=== PATIENT | female | born 1965 | race Caucasian/White ===

== ENCOUNTER 2017-07-10 01:08 | Day surgery (SDC) | payer OTHER ==
[~2017-07-10 01:08] MED LIST: ALBU90I INH; ALBU90OI; ALBU90OI61 INH; ALPR.5 PO; ALPR1 PO; BUME1; BUME2 PO; CEFD300 PO; CEFP200 PO; CEPH500 PO; CIPR500 PO; CLIN150; Colace100 MG PO; Coumadin2.5 MG PO; Coumadin5 MG PO; DIAZ5 PO; DOCU100 PO; DOXY100 PO; ELIQUIS5 MG PO; ENOX60I SC; FLUC100 PO; FLUSAL1005; GABA400; HYDCHLSU PO; HYDMOR2 PO; HYDMOR4 PO; HYDMOR8 PO; Invanz1 GM IV; LANS30EC PO; LEVFLO250 PO; LEVFLO500 PO; LEVO750 PO; LEVOFLOXAC500 MG/100 IV; LIDO2L MM; LORA1 PO; LORA2 PO; Lovenox80 MG/0.8 SC; METO10; METO10 PO; METO5A PO; Micro-K10 MEQ PO; NUTRISOURCE FI1 EACH PO; ONDA4ODT MM; OXECTA5 MG PO; OXYC15ER PO; OXYC20L PO; OXYC30 PO; OXYC5; OXYC5 PO; PANT20 PO; PANT40 PO; PHENA200 PO; POTCIT10 PO; PREG75 PO; PROACE100 PO; PROM25 PO; Prilosec Otc20 MG PO; RXHYDMOR2 PO; RXPHEN200 PO; RXPROACE PO; RXPROM25 PO; RXTRAM50 PO; SACC250C PO; SODBIC650 PO; SPACER INH; SULTRIDS PO; SULTRISS; TRAM50 PO; VITAMIN D31000 UNIT PO; WALKER USE; WARF2.5 PO; WARF5 PO; WARF7.5 PO; [UNRECOGNIZED DRUG - OTHER]
[2017-09-11] MEDS ORDERED: OXYCODONE HCL E15 MG PO (20:44)
[2017-09-17] MEDS ORDERED: DOCU100 PO (15:09)
[2017-09-17] MEDS ORDERED: ELIQUIS2.5 MG PO (15:10)
[2017-09-17] MEDS ORDERED: CEFP200 PO (15:11)
[2018-02-13] MEDS ORDERED: PROM25 PO (15:37)
[2018-02-13] MEDS ORDERED: LINZESS72 MCG PO (15:39)
[2018-03-04] MEDS ORDERED: LEVFLO500 PO (23:56)
[2018-03-24] MEDS ORDERED: CEFD300 PO (10:37)
[2018-03-24] MEDS ORDERED: ONDA4ODT MM (10:38)
[2018-03-24] MEDS ORDERED: Questran4 GM PO (12:37)
== END 2017-07-10 16:10 | disposition home or self-care (01) ==
LOC: ATC 01:08
DX: Z45.2 Encounter for adjustment and management of vascular access device (principal); N18.3 Chronic kidney disease, stage 3 (moderate); D63.1 Anemia in chronic kidney disease; R73.09 Other abnormal glucose; R76.9 Abnormal immunological finding in serum, unspecified; R94.5 Abnormal results of liver function studies; R94.6 Abnormal results of thyroid function studies; R53.81 Other malaise; L65.9 Nonscarring hair loss, unspecified
CPT/HCPCS: 96374; J1642; J2550

== ENCOUNTER 2017-07-24 09:33 | Inpatient (IN) | payer OTHER ==
[~2017-07-24] VITALS: Ht 167.6 cm; Wt 72.7 kg
[2017-07-24 11:05] LABS: Source, Urine Urostomy Bag
[2017-07-24 11:16] LABS: Blood, Urine 5+ (Neg); Glucose Qualitative, Urine Neg (Neg); Ketones, Urine 1+ (Neg); Leukocyte Esterase, Urine 3+ (Neg); Nitrite, Urine Neg (Neg); Protein, Urine 3+ (Neg); Specific Gravity, Urine 1.025 (1.003-1.022); Urobilinogen, Urine 1+ (Normal)
[2017-07-24 11:18] LABS: BASOPHILS ABSOLUTE AUTO 0.03 K/mm3 (0.00-0.23); BASOPHILS PERCENT AUTO 0 % (0-2); EOSINOPHILS ABSOLUTE AUTO 0.06 K/mm3 (0.00-0.68); EOSINOPHILS PERCENT AUTO 1 % (0-6); Hematocrit 49.7 % (33.0-51.0); Hemoglobin 17.1 g/dL (11.5-16.0); IMMATURE GRAN ABSOLUTE AUTO 0.05 K/mm3 (0.00-0.10); IMMATURE GRAN PERCENT AUTO 1 % (0-1); LYMPHOCYTES ABSOLUTE AUTO 1.85 K/mm3 (0.84-5.20); LYMPHOCYTES PERCENT AUTO 23 % (21-46); MONOCYTES ABSOLUTE AUTO 0.76 K/mm3 (0.16-1.47); MONOCYTES PERCENT AUTO 10 % (4-13); Mean Corpuscular HGB 28.6 pg (26.0-34.0); Mean Corpuscular HGB Conc 34.4 g/dL (31.5-36.5); Mean Corpuscular Volume 83 fL (80-100); NEUTROPHILS ABSOLUTE AUTO 5.22 K/mm3 (1.96-9.15); NEUTROPHILS PERCENT AUTO 66 % (41-73); RDW Coefficient Variation 14.8 % (11.7-14.2); RDW Standard Deviation 44.7 fL (35.1-46.3); Red Blood Cell Count 5.98 M/mm3 (3.80-5.20); White Blood Cell Count 7.97 K/mm3 (4.00-11.30)
[2017-07-24 11:22] LABS: Mean Platelet Volume 9.5 fL (9.1-12.4); Platelet Count 325 K/mm3 (150-400)
[2017-07-24 11:43] LABS: Albumin, Blood 3.7 g/dL (3.4-5.0); Albumin/Globulin Ratio 0.7 (0.8-1.8); Bilirubin, Total 0.7 mg/dL (0.1-1.0); Bun/Creatinine Ratio 18.1 (12.0-20.0); Calcium, Blood 9.2 mg/dL (8.5-10.1); Creatinine, Blood 2.87 mg/dL (0.40-1.00); Potassium, Blood 4.1 mmol/L (3.5-5.5); Total Protein, Blood 8.7 g/dL (6.4-8.2)
[2017-07-24 11:47] LABS: Bilirubin, Urine 2+ (Neg)
[2017-07-24 11:48] LABS: Appearance, Urine Turbid (Clear); Color, Urine Yellow (P-Yellow)
[2017-07-24 11:49] LABS: Bacteria Many /hpf; White Blood Cells, Urine TNTC /hpf (0-5)
[2017-07-24 11:51] LABS: Squamous Epithelial Cells Many /hpf (Few); Uric Acid Crystals Mod /hpf
[2017-07-24 11:53] LABS: Granular Casts 0-2 /lpf (0)
[2017-07-24] MEDS ORDERED: [UNRECOGNIZED DRUG - CODE] PO (12:44)
[2017-07-25 05:10] LABS: BASOPHILS ABSOLUTE AUTO 0.02 K/mm3 (0.00-0.23); BASOPHILS PERCENT AUTO 0 % (0-2); EOSINOPHILS PERCENT AUTO 3 % (0-6); Hematocrit 42.7 % (33.0-51.0); Hemoglobin 14.2 g/dL (11.5-16.0); IMMATURE GRAN ABSOLUTE AUTO 0.02 K/mm3 (0.00-0.10); IMMATURE GRAN PERCENT AUTO 0 % (0-1); LYMPHOCYTES ABSOLUTE AUTO 2.12 K/mm3 (0.84-5.20); LYMPHOCYTES PERCENT AUTO 36 % (21-46); MONOCYTES ABSOLUTE AUTO 0.72 K/mm3 (0.16-1.47); MONOCYTES PERCENT AUTO 12 % (4-13); Mean Corpuscular HGB 28.3 pg (26.0-34.0); Mean Corpuscular HGB Conc 33.3 g/dL (31.5-36.5); Mean Corpuscular Volume 85 fL (80-100); Mean Platelet Volume 9.3 fL (9.1-12.4); NEUTROPHILS ABSOLUTE AUTO 2.87 K/mm3 (1.96-9.15); NEUTROPHILS PERCENT AUTO 48 % (41-73); Platelet Count 241 K/mm3 (150-400); RDW Coefficient Variation 14.5 % (11.7-14.2); RDW Standard Deviation 44.5 fL (35.1-46.3); Red Blood Cell Count 5.02 M/mm3 (3.80-5.20); White Blood Cell Count 5.95 K/mm3 (4.00-11.30)
[2017-07-25 05:43] LABS: Alanine Aminotransfer (ALT/SGP 19 U/L (12-78); Albumin, Blood 3.1 g/dL (3.4-5.0); Albumin/Globulin Ratio 0.7 (0.8-1.8); Alk Phos 149 U/L (50-136); Anion Gap 11 mmol/L (6-16); Aspartate Aminotrans (AST/SGOT 11 U/L (12-37); Bilirubin, Total 0.6 mg/dL (0.1-1.0); Blood Urea Nitrogen 47 mg/dL (8-24); Bun/Creatinine Ratio 23.2 (12.0-20.0); CO2, Blood 22 mmol/L (21-32); Calcium, Blood 8.3 mg/dL (8.5-10.1); Chloride, Blood 100 mmol/L (98-108); Creatinine, Blood 2.03 mg/dL (0.40-1.00); Globulin, Blood 4.3 g/dL (2.2-4.0); Glomerular Filtration Rate 28 (60-); Glucose, Blood 112 mg/dL (70-99); Magnesium, Blood 2.1 mg/dL (1.6-2.4); Potassium, Blood 3.8 mmol/L (3.5-5.5); Sodium, Blood 133 mmol/L (136-145); Total Protein, Blood 7.4 g/dL (6.4-8.2)
[2017-07-26 06:06] LABS: Hematocrit 40.7 % (33.0-51.0); Hemoglobin 13.2 g/dL (11.5-16.0)
[2017-07-26 06:30] LABS: Albumin, Blood 3.2 g/dL (3.4-5.0); Anion Gap 9 mmol/L (6-16); Blood Urea Nitrogen 40 mg/dL (8-24); Bun/Creatinine Ratio 19.6 (12.0-20.0); CO2, Blood 21 mmol/L (21-32); Calcium, Blood 8.5 mg/dL (8.5-10.1); Chloride, Blood 105 mmol/L (98-108); Creatinine, Blood 2.04 mg/dL (0.40-1.00); Glomerular Filtration Rate 27 (60-); Glucose, Blood 118 mg/dL (70-99); Magnesium, Blood 1.8 mg/dL (1.6-2.4); Phosphorus, Blood 3.8 mg/dL (2.5-4.9); Sodium, Blood 135 mmol/L (136-145)
[2017-07-27 05:27] LABS: Hematocrit 37.8 % (33.0-51.0); Hemoglobin 12.2 g/dL (11.5-16.0)
[2017-07-27 05:45] LABS: Albumin, Blood 2.9 g/dL (3.4-5.0); Anion Gap 8 mmol/L (6-16); Blood Urea Nitrogen 31 mg/dL (8-24); CO2, Blood 23 mmol/L (21-32); Calcium, Blood 8.2 mg/dL (8.5-10.1); Chloride, Blood 108 mmol/L (98-108); Creatinine, Blood 1.55 mg/dL (0.40-1.00); Glomerular Filtration Rate 38 (60-); Glucose, Blood 114 mg/dL (70-99); Magnesium, Blood 1.9 mg/dL (1.6-2.4); Phosphorus, Blood 3.4 mg/dL (2.5-4.9); Potassium, Blood 4.1 mmol/L (3.5-5.5); Sodium, Blood 139 mmol/L (136-145)
[2017-07-28 05:12] LABS: Hemoglobin 11.8 g/dL (11.5-16.0)
[2017-07-28 05:32] LABS: Albumin, Blood 3.1 g/dL (3.4-5.0); Anion Gap 10 mmol/L (6-16); Blood Urea Nitrogen 31 mg/dL (8-24); Bun/Creatinine Ratio 17.2 (12.0-20.0); CO2, Blood 22 mmol/L (21-32); Calcium, Blood 8.1 mg/dL (8.5-10.1); Chloride, Blood 109 mmol/L (98-108); Glomerular Filtration Rate 32 (60-); Glucose, Blood 122 mg/dL (70-99); Magnesium, Blood 1.7 mg/dL (1.6-2.4); Phosphorus, Blood 3.5 mg/dL (2.5-4.9); Sodium, Blood 141 mmol/L (136-145)
[2017-07-28] MEDS ORDERED: XARELTO20 MG PO (12:34)
[2017-07-28] MEDS ORDERED: CEPH500 PO (12:35)
[2017-09-11] MEDS ORDERED: OXYCODONE HCL E15 MG PO (20:44)
[2017-09-17] MEDS ORDERED: DOCU100 PO (15:09)
[2017-09-17] MEDS ORDERED: ELIQUIS2.5 MG PO (15:10)
[2017-09-17] MEDS ORDERED: CEFP200 PO (15:11)
[2018-02-13] MEDS ORDERED: PROM25 PO (15:37)
[2018-02-13] MEDS ORDERED: LINZESS72 MCG PO (15:39)
[2018-03-04] MEDS ORDERED: LEVFLO500 PO (23:56)
[2018-03-24] MEDS ORDERED: CEFD300 PO (10:37)
[2018-03-24] MEDS ORDERED: ONDA4ODT MM (10:38)
[2018-03-24] MEDS ORDERED: Questran4 GM PO (12:37)
== END 2017-07-28 16:00 | disposition home or self-care (01) | DRG 389 ==
LOC: DELPENDDIS → ER 09:33 → MEDS 12:34 → ENPENDDIS 07-27 09:45 → MEDS 07-28 16:00
PROVIDERS: Internal Medicine; Internal Medicine Nephrology
DX: K56.609 Unspecified intestinal obstruction, unspecified as to partial versus complete obstruction (principal); N39.0 Urinary tract infection, site not specified; N17.9 Acute kidney failure, unspecified; E87.2 Acidosis; E87.1 Hypo-osmolality and hyponatremia; G82.20 Paraplegia, unspecified; G89.29 Other chronic pain; N18.9 Chronic kidney disease, unspecified; E86.9 Volume depletion, unspecified; E21.3 Hyperparathyroidism, unspecified; J44.9 Chronic obstructive pulmonary disease, unspecified; B96.20 Unspecified Escherichia coli [E. coli] as the cause of diseases classified elsewhere; E88.09 Other disorders of plasma-protein metabolism, not elsewhere classified; R80.9 Proteinuria, unspecified; R31.29 Other microscopic hematuria; F17.210 Nicotine dependence, cigarettes, uncomplicated; Z88.6 Allergy status to analgesic agent; Z88.5 Allergy status to narcotic agent; Z88.8 Allergy status to other drugs, medicaments and biological substances; Z93.2 Ileostomy status; Z93.6 Other artificial openings of urinary tract status; Z90.5 Acquired absence of kidney; Z85.41 Personal history of malignant neoplasm of cervix uteri; Z86.718 Personal history of other venous thrombosis and embolism; Z79.01 Long term (current) use of anticoagulants; Z79.899 Other long term (current) drug therapy; Z86.14 Personal history of Methicillin resistant Staphylococcus aureus infection
CPT/HCPCS: 36415; 74022; 74176; 80053; 80069; 81001; 83605; 83690; 83735; 84100; 84145; 85014; 85018; 85025; 87040; 87077; 87086; 87186; 87493; 96361; 96365; 96375; 96376; 99285; C9113; J0696; J1170; J1642; J1940; J1956; J2405; J2550; J2997; J7030; J7042; J7070

== ENCOUNTER → 2017-08-20 | Outpatient (CLI) | payer OTHER ==
[~2017-08-20] MED LIST changes: +ALBU2.5V5 NEB; +Amitiza24 MCG; +Amitiza24 MCG PO; +ELIQUIS2.5 MG PO; +LINZESS72 MCG PO; +Miralax17 GM PO; +OXYCODONE HCL E15 MG PO; +Questran4 GM PO; +XARELTO20 MG PO; +[UNRECOGNIZED DRUG - CODE] PO
[2017-08-20 18:41] LABS: Albumin, Blood 3.9 g/dL (3.4-5.0); Anion Gap 11 mmol/L (6-16); Blood Urea Nitrogen 22 mg/dL (8-24); Bun/Creatinine Ratio 13.5 (12.0-20.0); CO2, Blood 18 mmol/L (21-32); Calcium, Blood 8.9 mg/dL (8.5-10.1); Chloride, Blood 106 mmol/L (98-108); Creatinine, Blood 1.63 mg/dL (0.40-1.00); Glomerular Filtration Rate 36 (60-); Glucose, Blood 106 mg/dL (70-99); Sodium, Blood 135 mmol/L (136-145)
== END | disposition home or self-care (01) ==
LOC: LAB 16:59
PROVIDERS: Internal Medicine Nephrology
DX: N18.2 Chronic kidney disease, stage 2 (mild) (principal); D63.1 Anemia in chronic kidney disease
CPT/HCPCS: 80069; 85018

== ENCOUNTER 2017-11-20 05:46 | Inpatient (IN) | payer OTHER ==
[~2017-11-20] VITALS: Ht 157.5 cm; Wt 70.8 kg
[~2017-11-20 05:46] MED LIST changes: -ALBU2.5V5 NEB; -Amitiza24 MCG; -Amitiza24 MCG PO; -LINZESS72 MCG PO; -Miralax17 GM PO; -Questran4 GM PO
[2017-11-20 07:30] LABS: BASOPHILS ABSOLUTE AUTO 0.03 K/mm3 (0.00-0.23); BASOPHILS PERCENT AUTO 0 % (0-2); EOSINOPHILS ABSOLUTE AUTO 0.01 K/mm3 (0.00-0.68); EOSINOPHILS PERCENT AUTO 0 % (0-6); Hemoglobin 16.5 g/dL (11.5-16.0); IMMATURE GRAN ABSOLUTE AUTO 0.03 K/mm3 (0.00-0.10); IMMATURE GRAN PERCENT AUTO 0 % (0-1); LYMPHOCYTES ABSOLUTE AUTO 1.15 K/mm3 (0.84-5.20); LYMPHOCYTES PERCENT AUTO 12 % (21-46); MONOCYTES ABSOLUTE AUTO 0.38 K/mm3 (0.16-1.47); MONOCYTES PERCENT AUTO 4 % (4-13); Mean Corpuscular HGB 27.7 pg (26.0-34.0); Mean Corpuscular HGB Conc 32.4 g/dL (31.5-36.5); Mean Corpuscular Volume 86 fL (80-100); Mean Platelet Volume 9.3 fL (9.1-12.4); NEUTROPHILS ABSOLUTE AUTO 7.83 K/mm3 (1.96-9.15); NEUTROPHILS PERCENT AUTO 83 % (41-73); Platelet Count 300 K/mm3 (150-400); RDW Coefficient Variation 15.1 % (11.7-14.2); RDW Standard Deviation 47.6 fL (35.1-46.3); Red Blood Cell Count 5.95 M/mm3 (3.80-5.20); White Blood Cell Count 9.43 K/mm3 (4.00-11.30)
[2017-11-20 09:53] LABS: Source, Urine Clean Catch
[2017-11-20 10:08] LABS: Blood, Urine 2+ (Neg); Glucose Qualitative, Urine Neg (Neg); Ketones, Urine Neg (Neg); Leukocyte Esterase, Urine 3+ (Neg); Nitrite, Urine Pos (Neg); Protein, Urine 3+ (Neg); Specific Gravity, Urine 1.025 (1.003-1.022); Urobilinogen, Urine 1+ (Normal)
[2017-11-20 10:29] LABS: Bilirubin, Urine 1+ (Neg)
[2017-11-20 10:31] LABS: Appearance, Urine Cloudy (Clear); Bacteria Many /hpf; Color, Urine Yellow (P-Yellow); Mucus Light (0-Heavy); Squamous Epithelial Cells Mod /hpf (Few); White Blood Cells, Urine TNTC /hpf (0-5)
[2017-11-20 10:40] LABS: Albumin, Blood 3.6 g/dL (3.4-5.0); Albumin/Globulin Ratio 0.8 (0.8-1.8); Bilirubin, Total 0.6 mg/dL (0.1-1.0); Bun/Creatinine Ratio 11.2 (12.0-20.0); Calcium, Blood 9.4 mg/dL (8.5-10.1); Creatinine, Blood 1.96 mg/dL (0.40-1.00); Globulin, Blood 4.5 g/dL (2.2-4.0); Potassium, Blood 3.9 mmol/L (3.5-5.5); Total Protein, Blood 8.1 g/dL (6.4-8.2)
[2017-11-20] MEDS ORDERED: ALBU2.5V5 NEB (12:16)
[2017-11-20 17:05] LABS: Albumin, Blood 3.1 g/dL (3.4-5.0); Albumin/Globulin Ratio 0.8 (0.8-1.8); Bilirubin, Direct 0.5 mg/dL (0.0-0.3); Bilirubin, Indirect 0.6 mg/dL (0.1-0.7); Bilirubin, Total 1.1 mg/dL (0.1-1.0); Globulin, Blood 4.1 g/dL (2.2-4.0); Total Protein, Blood 7.2 g/dL (6.4-8.2)
[2017-11-21 02:39] LABS: BASOPHILS ABSOLUTE AUTO 0.02 K/mm3 (0.00-0.23); BASOPHILS PERCENT AUTO 0 % (0-2); Hematocrit 44.4 % (33.0-51.0); Hemoglobin 14.4 g/dL (11.5-16.0); LYMPHOCYTES ABSOLUTE AUTO 0.99 K/mm3 (0.84-5.20); LYMPHOCYTES PERCENT AUTO 17 % (21-46); MONOCYTES ABSOLUTE AUTO 0.68 K/mm3 (0.16-1.47); MONOCYTES PERCENT AUTO 12 % (4-13); Mean Corpuscular HGB Conc 32.4 g/dL (31.5-36.5); Mean Corpuscular Volume 86 fL (80-100); Mean Platelet Volume 9.1 fL (9.1-12.4); Platelet Count 204 K/mm3 (150-400); RDW Coefficient Variation 15.2 % (11.7-14.2); RDW Standard Deviation 48.5 fL (35.1-46.3); Red Blood Cell Count 5.15 M/mm3 (3.80-5.20)
[2017-11-21 02:43] LABS: EOSINOPHILS ABSOLUTE AUTO 0.01 K/mm3 (0.00-0.68); EOSINOPHILS PERCENT AUTO 0 % (0-6); IMMATURE GRAN ABSOLUTE AUTO 0.03 K/mm3 (0.00-0.10); IMMATURE GRAN PERCENT AUTO 1 % (0-1); NEUTROPHILS ABSOLUTE AUTO 3.97 K/mm3 (1.96-9.15); NEUTROPHILS PERCENT AUTO 70 % (41-73)
[2017-11-21 02:55] LABS: Albumin, Blood 2.7 g/dL (3.4-5.0); Anion Gap 13 mmol/L (6-16); Blood Urea Nitrogen 34 mg/dL (8-24); Bun/Creatinine Ratio 13.5 (12.0-20.0); CO2, Blood 18 mmol/L (21-32); Chloride, Blood 111 mmol/L (98-108); Creatinine, Blood 2.51 mg/dL (0.40-1.00); Glomerular Filtration Rate 22 (60-); Glucose, Blood 137 mg/dL (70-99); Magnesium, Blood 1.3 mg/dL (1.6-2.4); Phosphorus, Blood 3.6 mg/dL (2.5-4.9); Potassium, Blood 3.6 mmol/L (3.5-5.5); Sodium, Blood 142 mmol/L (136-145)
[2017-11-22 05:24] LABS: Hematocrit 36.2 % (33.0-51.0); Hemoglobin 12.5 g/dL (11.5-16.0)
[2017-11-22 05:45] LABS: Albumin, Blood 2.4 g/dL (3.4-5.0); Anion Gap 13 mmol/L (6-16); Blood Urea Nitrogen 36 mg/dL (8-24); Bun/Creatinine Ratio 13.5 (12.0-20.0); CO2, Blood 28 mmol/L (21-32); Chloride, Blood 98 mmol/L (98-108); Creatinine, Blood 2.67 mg/dL (0.40-1.00); Glomerular Filtration Rate 20 (60-); Glucose, Blood 95 mg/dL (70-99); Magnesium, Blood 2.1 mg/dL (1.6-2.4); Phosphorus, Blood 3.3 mg/dL (2.5-4.9); Potassium, Blood 2.8 mmol/L (3.5-5.5); Sodium, Blood 139 mmol/L (136-145)
[2017-11-22 16:16] LABS: Magnesium, Blood 2.1 mg/dL (1.6-2.4); Potassium, Blood 3.3 mmol/L (3.5-5.5)
[2017-11-23 04:20] LABS: Hematocrit 32.2 % (33.0-51.0); Hemoglobin 10.7 g/dL (11.5-16.0)
[2017-11-23 04:36] LABS: Albumin, Blood 2.5 g/dL (3.4-5.0); Anion Gap 8 mmol/L (6-16); Blood Urea Nitrogen 28 mg/dL (8-24); CO2, Blood 28 mmol/L (21-32); Calcium, Blood 7.8 mg/dL (8.5-10.1); Chloride, Blood 104 mmol/L (98-108); Creatinine, Blood 2.33 mg/dL (0.40-1.00); Glomerular Filtration Rate 23 (60-); Glucose, Blood 90 mg/dL (70-99); Magnesium, Blood 2.1 mg/dL (1.6-2.4); Phosphorus, Blood 2.4 mg/dL (2.5-4.9); Potassium, Blood 3.1 mmol/L (3.5-5.5); Sodium, Blood 140 mmol/L (136-145)
[2017-11-23 16:40] LABS: Phosphorus, Blood 3.5 mg/dL (2.5-4.9); Potassium, Blood 3.9 mmol/L (3.5-5.5)
[2017-11-24 04:28] LABS: Hematocrit 30.2 % (33.0-51.0); Hemoglobin 9.7 g/dL (11.5-16.0)
[2017-11-24 04:40] LABS: Albumin, Blood 2.3 g/dL (3.4-5.0); Anion Gap 7 mmol/L (6-16); Blood Urea Nitrogen 23 mg/dL (8-24); Bun/Creatinine Ratio 12.1 (12.0-20.0); CO2, Blood 27 mmol/L (21-32); Calcium, Blood 7.8 mg/dL (8.5-10.1); Chloride, Blood 106 mmol/L (98-108); Glomerular Filtration Rate 30 (60-); Glucose, Blood 102 mg/dL (70-99); Magnesium, Blood 1.9 mg/dL (1.6-2.4); Potassium, Blood 3.6 mmol/L (3.5-5.5); Sodium, Blood 140 mmol/L (136-145)
[2017-11-25 06:13] LABS: Hematocrit 32.5 % (33.0-51.0); Hemoglobin 10.3 g/dL (11.5-16.0)
[2017-11-25 06:31] LABS: Albumin, Blood 2.4 g/dL (3.4-5.0); Anion Gap 7 mmol/L (6-16); Blood Urea Nitrogen 20 mg/dL (8-24); Bun/Creatinine Ratio 12.7 (12.0-20.0); CO2, Blood 26 mmol/L (21-32); Chloride, Blood 108 mmol/L (98-108); Creatinine, Blood 1.57 mg/dL (0.40-1.00); Glomerular Filtration Rate 37 (60-); Glucose, Blood 92 mg/dL (70-99); Magnesium, Blood 1.7 mg/dL (1.6-2.4); Phosphorus, Blood 2.2 mg/dL (2.5-4.9); Potassium, Blood 4.1 mmol/L (3.5-5.5); Sodium, Blood 141 mmol/L (136-145)
[2017-11-26 06:57] LABS: Hematocrit 31.3 % (33.0-51.0); Hemoglobin 10.1 g/dL (11.5-16.0)
[2017-11-26 07:12] LABS: Albumin, Blood 2.4 g/dL (3.4-5.0); Anion Gap 9 mmol/L (6-16); Blood Urea Nitrogen 17 mg/dL (8-24); Bun/Creatinine Ratio 12.3 (12.0-20.0); CO2, Blood 24 mmol/L (21-32); Calcium, Blood 8.2 mg/dL (8.5-10.1); Chloride, Blood 108 mmol/L (98-108); Creatinine, Blood 1.38 mg/dL (0.40-1.00); Glomerular Filtration Rate 43 (60-); Glucose, Blood 108 mg/dL (70-99); Magnesium, Blood 1.3 mg/dL (1.6-2.4); Phosphorus, Blood 2.8 mg/dL (2.5-4.9); Potassium, Blood 4.3 mmol/L (3.5-5.5); Sodium, Blood 141 mmol/L (136-145)
[2017-11-26] MEDS ORDERED: Amitiza24 MCG PO (15:04)
[2017-11-26] MEDS ORDERED: CEFP200 PO (15:05)
== END 2017-11-26 16:05 | disposition home or self-care (01) | DRG 683 ==
LOC: ER 05:46 → PCU 11:32 → MEDS 11:32 → PCU 11-21 02:51 → MEDS 11-24 18:20 → ENPENDDIS 11-26 12:00 → MEDS 11-26 16:05
PROVIDERS: Emergency Medicine; Internal Medicine; Internal Medicine Nephrology
DX: N17.9 Acute kidney failure, unspecified (principal); K56.7 Ileus, unspecified; E87.2 Acidosis; N39.0 Urinary tract infection, site not specified; G82.20 Paraplegia, unspecified; E21.3 Hyperparathyroidism, unspecified; E86.9 Volume depletion, unspecified; B96.20 Unspecified Escherichia coli [E. coli] as the cause of diseases classified elsewhere; Z16.12 Extended spectrum beta lactamase (ESBL) resistance; Z85.41 Personal history of malignant neoplasm of cervix uteri; Z86.718 Personal history of other venous thrombosis and embolism; Z79.01 Long term (current) use of anticoagulants; J44.9 Chronic obstructive pulmonary disease, unspecified; F41.8 Other specified anxiety disorders; F17.210 Nicotine dependence, cigarettes, uncomplicated; G89.4 Chronic pain syndrome; Z93.6 Other artificial openings of urinary tract status; E83.42 Hypomagnesemia; K59.03 Drug induced constipation; T40.2X5A Adverse effect of other opioids, initial encounter
CPT/HCPCS: 36415; 74022; 74176; 80048; 80053; 80069; 80076; 81001; 82150; 83605; 83690; 83735; 84100; 84132; 85014; 85018; 85025; 87040; 87077; 87086; 87186; 93005; 93010; 96361; 96374; 96375; 96376; 99285; C9113; J0696; J0780; J0881; J1642; J1940; J2405; J2543; J2550; J2997; J3010; J3475; J3480; J7030; J7050; J7060

== ENCOUNTER 2018-02-11 11:33 | Day surgery (SDC) | payer OTHER ==
[~2018-02-11 11:33] MED LIST changes: +ALBU2.5V5 NEB; +Amitiza24 MCG PO
[2018-02-11 12:49] LABS: Albumin, Blood 3.5 g/dL (3.4-5.0); Anion Gap 10 mmol/L (6-16); Blood Urea Nitrogen 33 mg/dL (8-24); Bun/Creatinine Ratio 14.9 (12.0-20.0); CO2, Blood 18 mmol/L (21-32); Calcium, Blood 8.6 mg/dL (8.5-10.1); Chloride, Blood 113 mmol/L (98-108); Creatinine, Blood 2.21 mg/dL (0.40-1.00); Glomerular Filtration Rate 25 (60-); Glucose, Blood 77 mg/dL (70-99); Phosphorus, Blood 3.4 mg/dL (2.5-4.9); Potassium, Blood 4.1 mmol/L (3.5-5.5); Sodium, Blood 141 mmol/L (136-145)
[2018-02-13] MEDS ORDERED: OXYC15ER (15:35)
== END 2018-02-11 12:18 | disposition home or self-care (01) ==
LOC: ATC 11:33
PROVIDERS: Internal Medicine Nephrology
DX: N13.9 Obstructive and reflux uropathy, unspecified (principal); N18.3 Chronic kidney disease, stage 3 (moderate); D63.1 Anemia in chronic kidney disease; R11.2 Nausea with vomiting, unspecified
CPT/HCPCS: 80069; 85018; 96374; J1642; J2550

== ENCOUNTER 2018-02-13 14:47 | Inpatient (IN) | payer OTHER ==
[~2018-02-13] VITALS: Ht 167.6 cm; Wt 61.0 kg
[2018-02-13 15:28] LABS: Source, Urine Clean Catch
[2018-02-13 15:30] LABS: BASOPHILS ABSOLUTE AUTO 0.08 K/mm3 (0.00-0.23); BASOPHILS PERCENT AUTO 1 % (0-2); EOSINOPHILS ABSOLUTE AUTO 0.02 K/mm3 (0.00-0.68); EOSINOPHILS PERCENT AUTO 0 % (0-6); Hemoglobin 15.7 g/dL (11.5-16.0); IMMATURE GRAN ABSOLUTE AUTO 0.05 K/mm3 (0.00-0.10); IMMATURE GRAN PERCENT AUTO 0 % (0-1); LYMPHOCYTES ABSOLUTE AUTO 1.54 K/mm3 (0.84-5.20); LYMPHOCYTES PERCENT AUTO 9 % (21-46); MONOCYTES ABSOLUTE AUTO 0.68 K/mm3 (0.16-1.47); MONOCYTES PERCENT AUTO 4 % (4-13); Mean Corpuscular HGB 27.6 pg (26.0-34.0); Mean Corpuscular HGB Conc 32.7 g/dL (31.5-36.5); Mean Corpuscular Volume 85 fL (80-100); Mean Platelet Volume 9.1 fL (9.1-12.4); NEUTROPHILS ABSOLUTE AUTO 14.03 K/mm3 (1.96-9.15); NEUTROPHILS PERCENT AUTO 86 % (41-73); Platelet Count 343 K/mm3 (150-400); RDW Standard Deviation 49.6 fL (35.1-46.3); Red Blood Cell Count 5.68 M/mm3 (3.80-5.20)
[2018-02-13 15:30] LABS: Appearance, Urine Cloudy (Clear); Blood, Urine 5+ (Neg); Color, Urine Yellow (P-Yellow); Glucose Qualitative, Urine Neg (Neg); Ketones, Urine Neg (Neg); Leukocyte Esterase, Urine 3+ (Neg); Nitrite, Urine Neg (Neg); Protein, Urine 3+ (Neg); Urobilinogen, Urine 1+ (Normal)
[2018-02-13 15:35] LABS: Bilirubin, Urine 1+ (Neg)
[2018-02-13] MEDS ORDERED: OXYC15ER PO (15:35)
[2018-02-13 15:36] LABS: White Blood Cells, Urine TNTC /hpf (0-5)
[2018-02-13] MEDS ORDERED: PROM25 (15:37)
[2018-02-13] MEDS ORDERED: Amitiza24 MCG (15:37)
[2018-02-13 15:38] LABS: Bacteria Many /hpf; Squamous Epithelial Cells Few /hpf (Few)
[2018-02-13] MEDS ORDERED: LINZESS72 MCG (15:39)
[2018-02-13 15:46] LABS: Albumin, Blood 4.2 g/dL (3.4-5.0); Albumin/Globulin Ratio 0.9 (0.8-1.8); Bilirubin, Total 0.4 mg/dL (0.1-1.0); Bun/Creatinine Ratio 11.5 (12.0-20.0); Creatinine, Blood 3.31 mg/dL (0.40-1.00); Globulin, Blood 4.8 g/dL (2.2-4.0); Potassium, Blood 3.3 mmol/L (3.5-5.5)
[2018-02-13 21:59] LABS: Bun/Creatinine Ratio 12.4 (12.0-20.0); Creatinine, Blood 3.56 mg/dL (0.40-1.00)
[2018-02-14 06:35] LABS: U Benzodiazapine Screen DETECTED; U Opiates Screen DETECTED; U Oxycodone Screen DETECTED
[2018-02-14 06:36] LABS: U Amphetamine Screen Not Detected; U Barbituate Screen Not Detected; U Buprenorphine Screen Not Detected; U Cannabinoids Screen Not Detected; U Cocaine Screen Not Detected; U Methadone Screen Not Detected; U Methamphetamine Screen Not Detected; U Phencyclidine Screen Not Detected; U Propoxyphene Screen Not Detected
[2018-02-14 08:28] LABS: BASOPHILS ABSOLUTE AUTO 0.02 K/mm3 (0.00-0.23); BASOPHILS PERCENT AUTO 0 % (0-2); EOSINOPHILS ABSOLUTE AUTO 0.01 K/mm3 (0.00-0.68); EOSINOPHILS PERCENT AUTO 0 % (0-6); Hematocrit 40.9 % (33.0-51.0); Hemoglobin 13.5 g/dL (11.5-16.0); IMMATURE GRAN ABSOLUTE AUTO 0.02 K/mm3 (0.00-0.10); IMMATURE GRAN PERCENT AUTO 0 % (0-1); LYMPHOCYTES ABSOLUTE AUTO 0.94 K/mm3 (0.84-5.20); LYMPHOCYTES PERCENT AUTO 18 % (21-46); MONOCYTES ABSOLUTE AUTO 0.75 K/mm3 (0.16-1.47); MONOCYTES PERCENT AUTO 14 % (4-13); Mean Corpuscular HGB 27.7 pg (26.0-34.0); Mean Corpuscular Volume 84 fL (80-100); Mean Platelet Volume 10.1 fL (9.1-12.4); NEUTROPHILS ABSOLUTE AUTO 3.54 K/mm3 (1.96-9.15); NEUTROPHILS PERCENT AUTO 67 % (41-73); Platelet Count 232 K/mm3 (150-400); RDW Coefficient Variation 15.9 % (11.7-14.2); RDW Standard Deviation 49.1 fL (35.1-46.3); Red Blood Cell Count 4.87 M/mm3 (3.80-5.20); White Blood Cell Count 5.28 K/mm3 (4.00-11.30)
[2018-02-14 08:44] LABS: Calcium, Blood 8.1 mg/dL (8.5-10.1); Creatinine, Blood 3.85 mg/dL (0.40-1.00); Potassium, Blood 4.4 mmol/L (3.5-5.5)
[2018-02-14 09:22] LABS: Albumin, Blood 2.8 g/dL (3.4-5.0); Albumin/Globulin Ratio 0.7 (0.8-1.8); Bilirubin, Total 0.6 mg/dL (0.1-1.0); Bun/Creatinine Ratio 14.3 (12.0-20.0); Calcium, Blood 8.1 mg/dL (8.5-10.1); Creatinine, Blood 3.85 mg/dL (0.40-1.00); Globulin, Blood 3.9 g/dL (2.2-4.0); Potassium, Blood 4.4 mmol/L (3.5-5.5)
[2018-02-14 09:24] LABS: Total Protein, Blood 6.7 g/dL (6.4-8.2)
[2018-02-15 04:43] LABS: Hematocrit 35.7 % (33.0-51.0); Hemoglobin 12.2 g/dL (11.5-16.0)
[2018-02-15 04:56] LABS: Albumin, Blood 2.6 g/dL (3.4-5.0); Anion Gap 11 mmol/L (6-16); Blood Urea Nitrogen 53 mg/dL (8-24); Bun/Creatinine Ratio 14.8 (12.0-20.0); CO2, Blood 27 mmol/L (21-32); Calcium, Blood 8.1 mg/dL (8.5-10.1); Chloride, Blood 100 mmol/L (98-108); Creatinine, Blood 3.57 mg/dL (0.40-1.00); Glomerular Filtration Rate 14 (60-); Glucose, Blood 146 mg/dL (70-99); Magnesium, Blood 1.7 mg/dL (1.6-2.4); Phosphorus, Blood 2.2 mg/dL (2.5-4.9); Potassium, Blood 3.3 mmol/L (3.5-5.5); Sodium, Blood 138 mmol/L (136-145)
[2018-02-16 05:44] LABS: Hemoglobin 10.7 g/dL (11.5-16.0)
[2018-02-16 06:00] LABS: Albumin, Blood 2.6 g/dL (3.4-5.0); Anion Gap 11 mmol/L (6-16); Blood Urea Nitrogen 51 mg/dL (8-24); CO2, Blood 27 mmol/L (21-32); Calcium, Blood 7.9 mg/dL (8.5-10.1); Chloride, Blood 100 mmol/L (98-108); Creatinine, Blood 3.41 mg/dL (0.40-1.00); Glomerular Filtration Rate 15 (60-); Glucose, Blood 79 mg/dL (70-99); Magnesium, Blood 1.6 mg/dL (1.6-2.4); Phosphorus, Blood 3.7 mg/dL (2.5-4.9); Potassium, Blood 3.6 mmol/L (3.5-5.5); Sodium, Blood 138 mmol/L (136-145)
[2018-02-17 04:45] LABS: Hematocrit 29.5 % (33.0-51.0); Hemoglobin 9.7 g/dL (11.5-16.0)
[2018-02-17 05:00] LABS: Albumin, Blood 2.4 g/dL (3.4-5.0); Anion Gap 7 mmol/L (6-16); Blood Urea Nitrogen 47 mg/dL (8-24); Bun/Creatinine Ratio 15.4 (12.0-20.0); CO2, Blood 29 mmol/L (21-32); Calcium, Blood 7.3 mg/dL (8.5-10.1); Chloride, Blood 102 mmol/L (98-108); Creatinine, Blood 3.06 mg/dL (0.40-1.00); Glomerular Filtration Rate 17 (60-); Glucose, Blood 96 mg/dL (70-99); Magnesium, Blood 1.5 mg/dL (1.6-2.4); Phosphorus, Blood 3.3 mg/dL (2.5-4.9); Sodium, Blood 138 mmol/L (136-145)
[2018-02-18 06:31] LABS: Hemoglobin 10.6 g/dL (11.5-16.0)
[2018-02-18 06:43] LABS: Albumin, Blood 2.5 g/dL (3.4-5.0); Anion Gap 10 mmol/L (6-16); Blood Urea Nitrogen 35 mg/dL (8-24); Bun/Creatinine Ratio 14.8 (12.0-20.0); CO2, Blood 23 mmol/L (21-32); Calcium, Blood 7.7 mg/dL (8.5-10.1); Chloride, Blood 108 mmol/L (98-108); Creatinine, Blood 2.36 mg/dL (0.40-1.00); Glomerular Filtration Rate 23 (60-); Glucose, Blood 112 mg/dL (70-99); Magnesium, Blood 1.8 mg/dL (1.6-2.4); Phosphorus, Blood 2.3 mg/dL (2.5-4.9); Potassium, Blood 3.3 mmol/L (3.5-5.5); Sodium, Blood 141 mmol/L (136-145)
[2018-02-19 06:33] LABS: Hemoglobin 9.2 g/dL (11.5-16.0)
[2018-02-19 06:51] LABS: Albumin, Blood 2.3 g/dL (3.4-5.0); Anion Gap 10 mmol/L (6-16); Blood Urea Nitrogen 29 mg/dL (8-24); Bun/Creatinine Ratio 14.4 (12.0-20.0); CO2, Blood 24 mmol/L (21-32); Calcium, Blood 7.3 mg/dL (8.5-10.1); Chloride, Blood 109 mmol/L (98-108); Creatinine, Blood 2.01 mg/dL (0.40-1.00); Glomerular Filtration Rate 28 (60-); Glucose, Blood 90 mg/dL (70-99); Magnesium, Blood 1.4 mg/dL (1.6-2.4); Phosphorus, Blood 2.7 mg/dL (2.5-4.9); Potassium, Blood 3.8 mmol/L (3.5-5.5); Sodium, Blood 143 mmol/L (136-145)
[2018-02-19] MEDS ORDERED: Miralax17 GM PO (11:38)
== END 2018-02-19 11:50 | disposition home or self-care (01) | DRG 872 ==
LOC: ER 14:47 → MEDS 17:40 → PCU 17:40 → MEDS 02-15 15:07 → ENPENDDIS 02-19 11:00 → MEDS 02-19 11:50
PROVIDERS: Emergency Medicine; Internal Medicine; Internal Medicine Nephrology; Nurse Practitioner Acute Care
DX: A41.9 Sepsis, unspecified organism (principal); N39.0 Urinary tract infection, site not specified; K56.609 Unspecified intestinal obstruction, unspecified as to partial versus complete obstruction; E87.2 Acidosis; N82.8 Other female genital tract fistulae; N17.9 Acute kidney failure, unspecified; N10 Acute pyelonephritis; R65.20 Severe sepsis without septic shock; G89.4 Chronic pain syndrome; N18.3 Chronic kidney disease, stage 3 (moderate); D63.1 Anemia in chronic kidney disease; E21.3 Hyperparathyroidism, unspecified; E86.9 Volume depletion, unspecified; R11.2 Nausea with vomiting, unspecified; E87.6 Hypokalemia; I95.9 Hypotension, unspecified; F17.210 Nicotine dependence, cigarettes, uncomplicated; E83.42 Hypomagnesemia; E88.09 Other disorders of plasma-protein metabolism, not elsewhere classified; Z85.41 Personal history of malignant neoplasm of cervix uteri; Z93.6 Other artificial openings of urinary tract status; Z87.440 Personal history of urinary (tract) infections; Z88.6 Allergy status to analgesic agent; Z88.1 Allergy status to other antibiotic agents; Z88.5 Allergy status to narcotic agent; Z88.8 Allergy status to other drugs, medicaments and biological substances; Z92.3 Personal history of irradiation; Z93.2 Ileostomy status; Z86.718 Personal history of other venous thrombosis and embolism; Z79.01 Long term (current) use of anticoagulants; Z79.899 Other long term (current) drug therapy
CPT/HCPCS: 36415; 74176; 80048; 80053; 80069; 81001; 83605; 83690; 83735; 84100; 85014; 85018; 85025; 85049; 87040; 87086; 96361; 96374; 96375; 96376; 99285-25; C9113; J0696; J0780; J1170; J1642; J2060; J2405; J2550; J2997; J3010; J3475; J3480; J7030; J7040; J7050; J7060; J7070

== ENCOUNTER 2018-09-11 16:11 | Inpatient (IN) | payer OTHER ==
[~2018-09-11] VITALS: Ht 165.1 cm; Wt 70.5 kg
[~2018-09-11 16:11] MED LIST changes: +Amitiza24 MCG; +LINZESS72 MCG PO
[2018-09-11 18:35] LABS: BASOPHILS ABSOLUTE AUTO 0.06 K/mm3 (0.00-0.23); BASOPHILS PERCENT AUTO 0 % (0-2); EOSINOPHILS ABSOLUTE AUTO 0.05 K/mm3 (0.00-0.68); EOSINOPHILS PERCENT AUTO 0 % (0-6); Hematocrit 47.1 % (33.0-51.0); IMMATURE GRAN ABSOLUTE AUTO 0.06 K/mm3 (0.00-0.10); IMMATURE GRAN PERCENT AUTO 0 % (0-1); LYMPHOCYTES ABSOLUTE AUTO 1.16 K/mm3 (0.84-5.20); LYMPHOCYTES PERCENT AUTO 9 % (21-46); MONOCYTES ABSOLUTE AUTO 1.46 K/mm3 (0.16-1.47); MONOCYTES PERCENT AUTO 11 % (4-13); Mean Corpuscular HGB 29.4 pg (26.0-34.0); Mean Corpuscular HGB Conc 31.8 g/dL (31.5-36.5); Mean Corpuscular Volume 92 fL (80-100); Mean Platelet Volume 8.7 fL (9.1-12.4); NEUTROPHILS ABSOLUTE AUTO 10.75 K/mm3 (1.96-9.15); NEUTROPHILS PERCENT AUTO 79 % (41-73); Platelet Count 339 K/mm3 (150-400); RDW Coefficient Variation 14.7 % (11.7-14.2); RDW Standard Deviation 50.1 fL (35.1-46.3); White Blood Cell Count 13.54 K/mm3 (4.00-11.30)
[2018-09-11 18:54] LABS: Albumin, Blood 3.5 g/dL (3.4-5.0); Albumin/Globulin Ratio 0.7 (0.8-1.8); Bilirubin, Total 0.4 mg/dL (0.1-1.0); Bun/Creatinine Ratio 16.4 (12.0-20.0); Calcium, Blood 9.5 mg/dL (8.5-10.1); Creatinine, Blood 2.56 mg/dL (0.40-1.00); Globulin, Blood 4.7 g/dL (2.2-4.0); Potassium, Blood 3.9 mmol/L (3.5-5.5); Total Protein, Blood 8.2 g/dL (6.4-8.2)
[2018-09-11] MEDS ORDERED: Questran4 GM PO (20:29)
[2018-09-11] MEDS ORDERED: ALBU90OI PO (20:31)
[2018-09-11] MEDS ORDERED: Miralax17 GM PO (20:34)
[2018-09-11] MEDS ORDERED: OXYC10TA19 PO (20:36)
[2018-09-11 21:12] LABS: Source, Urine Catheter
[2018-09-11 21:16] LABS: Blood, Urine 5+ (Neg); Glucose Qualitative, Urine Neg (Neg); Ketones, Urine 1+ (Neg); Leukocyte Esterase, Urine 3+ (Neg); Nitrite, Urine Pos (Neg); Protein, Urine 4+ (Neg); Specific Gravity, Urine 1.025 (1.003-1.022); Urobilinogen, Urine 1+ (Normal)
[2018-09-11 21:24] LABS: Bilirubin, Urine 2+ (Neg)
[2018-09-11 21:25] LABS: Appearance, Urine Turbid (Clear); Color, Urine Amber (P-Yellow)
[2018-09-11 21:26] LABS: Amorphous Light ({null, 0-Heavy}); Bacteria Many /hpf; Mucus Mod ({null, 0-Heavy}); Squamous Epithelial Cells Not Seen /hpf (Few); White Blood Cells, Urine TNTC /hpf (0-5)
[2018-09-11 22:30] LABS: Adenovirus F 40/41 Not Detected (NOT DETECT); Astrovirus Not Detected (NOT DETECT); Campylobacter Sp Not Detected (NOT DETECT); Cryptosporidium Not Detected (NOT DETECT); Cyclospora Cayetanensis Not Detected (NOT DETECT); E. Coli O157 Not Detected (NOT DETECT); Entamoeba Histolytica Not Detected (NOT DETECT); Enteroaggregative E. coli-EAEC Not Detected (NOT DETECT); Enteropathogenic E. coli-EPEC Not Detected (NOT DETECT); Enterotoxigenic E. coli-ETEC Not Detected (NOT DETECT); Giardia Lamblia Not Detected (NOT DETECT); Norovirus GI/GII Not Detected (NOT DETECT); Plesiomonas Shigelloides Not Detected (NOT DETECT); Rotavirus A Not Detected (NOT DETECT); Salmonella Sp Not Detected (NOT DETECT); Sapovirus Not Detected (NOT DETECT); Shiga Toxin-prod E. coli-STEC Not Detected (NOT DETECT); Shigella/Enteroin E. coli-EIEC Not Detected (NOT DETECT); Vibrio Cholerae Not Detected (NOT DETECT); Vibrio Sp Not Detected (NOT DETECT); Yersinia Enterocolitica Not Detected (NOT DETECT)
[2018-09-12 01:43] LABS: PCO2 Venous 30.2 mmHg (38-42); pH Blood Venous 7.34 (7.34-7.37)
[2018-09-12 01:44] LABS: Base Excess Venous -9.7 mmol/L; Bicarbonate Venous 17.7 mmol/L (24.0-30.0); PO2 Venous 127 mmHg (38-42)
[2018-09-12 01:56] LABS: Bun/Creatinine Ratio 16.5 (12.0-20.0); Calcium, Blood 8.3 mg/dL (8.5-10.1); Creatinine, Blood 2.6 mg/dL (0.40-1.00); Potassium, Blood 4.5 mmol/L (3.5-5.5)
[2018-09-12 02:01] LABS: CPK Creatine Kinase 58 U/L (26-193); Troponin I <0.015 ng/mL (0.000-0.040)
[2018-09-12 02:15] LABS: Lactate Dehydrogenase (Ld),Bld 132 U/L (100-240)
--- NOTE | 2018-09-12 02:17 | NUR ---
ASSUMING CARE RECEIVED PT REPORT FROM ESEQUIEL BRUCE IN ER. PT IS BEING ADMITTED DUE TO SEPSIS. PT ARRIVED TO THE UNIT AT APPROX 2244. PT ESCORTED BY FURNITURE MAKER AND ARRIVED VIA STRETCHER. PT IS ALERT AND ORIENTED AT THE TIME OF ARRIVAL TO UNIT. PT IS NOTED TO BE ANXIOUS WITH SOMEWHAT PRESSURED SPEECH. PT ARRIVED TO UNIT WITH PERSONAL WHEEL CHAIR AND MULTIPLE BELONGINGS. PT HAD MULTIPLE MEDICATIONS INCLUDING NARCOTICS IN PURSE. MEDICATIONS COUNTED BY ESEQUIEL CASTRO AND THIS RN IN FRONT OF PT FOR VERIFICATION. NARCOTICS AND OTHER MEDICATIONS TAKEN UP TO PHARMACY BY ESEQUIEL CASTRO. PT IS TACHYCARDIC IN THE 110-130 RANGE ON ARRIVAL TO UNIT. PT BP IS BORDERLINE IN THE 90-100 RANGE. PER REPORT PT HAS RECEIVED 2L OF FLUIDS IN ER. PT PROVIDED 1L LR UPON ARRIVAL TO UNIT. PER ALEJANDRA CALLOWAY INSTRUCTIONS PT PROVIDED AN ADDITIONAL 500ML LR BOLUS. PT PLACED ON NS AT 150ML/HR AFTER COMPLETION OF BOLUSES. PT HAS NEPHROSTOMY AND ILLEOSTOMY TO RIGHT FLANK/ABDOMEN. PT HAS LARGE AMOUNT OF LIQUIDY BROWN OUTPUT FROM ILLEOSTOMY. PT APPEARS TO HAVE SMALL AMOUNT OF URINE OUTPUT AT THIS TIME. URINE IS RYAN/TEA COLORED. PT IS REPORTING 10/10 BACK/LEG PAIN. PT PROVIDED 2MG DILAUDID PER EMAR. PT IS PARALYZED IN BLE AT BASELINE. PT HAS VERY SMALL AMOUNT OF GROSS MOVEMENT AND SOME MINOR SENSATION TO THE RIGHT LEG. 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 PT HAS CALL COLORED FOUL SMELLING VAGINAL DISCHARGE. ALEJANDRA CALLOWAY AWARE. ASSUMED CARE OF PT AT THE TIME OF ARRIVAL TO UNIT. WILL CONTINUE TO MONITOR PT.
[2018-09-12 05:04] LABS: Hematocrit 42.3 % (33.0-51.0); Hemoglobin 12.9 g/dL (11.5-16.0); Mean Corpuscular HGB 29.5 pg (26.0-34.0); Mean Corpuscular HGB Conc 30.5 g/dL (31.5-36.5); Mean Platelet Volume 9.1 fL (9.1-12.4); Platelet Count 205 K/mm3 (150-400); RDW Coefficient Variation 14.6 % (11.7-14.2); RDW Standard Deviation 51.7 fL (35.1-46.3); Red Blood Cell Count 4.38 M/mm3 (3.80-5.20); White Blood Cell Count 4.89 K/mm3 (4.00-11.30)
[2018-09-12 05:10] LABS: Mean Corpuscular Volume 97 fL (80-100)
[2018-09-12 05:30] LABS: Albumin/Globulin Ratio 0.8 (0.8-1.8); Bilirubin, Total 0.5 mg/dL (0.1-1.0); Bun/Creatinine Ratio 17.1 (12.0-20.0); Calcium, Blood 8.6 mg/dL (8.5-10.1); Creatinine, Blood 2.51 mg/dL (0.40-1.00); Globulin, Blood 3.8 g/dL (2.2-4.0); Magnesium, Blood 1.3 mg/dL (1.6-2.4); Potassium, Blood 4.5 mmol/L (3.5-5.5); Total Protein, Blood 6.8 g/dL (6.4-8.2)
--- NOTE | 2018-09-12 06:41 | NUR ---
SHIFT SUMAMRY NOTE PT HAS REMAINED ALERT AND ORIENTED WHILE AWAKE. PT HAS APPEARED TO BE MORE DROWSY AFTER ADMINISTRATION OF 2ND DOSE OF DILAUDID. PT BP'S HAVE MAINTAINED IN THE 100 RANGE WHILE AWAKE. WHILE ASLEEP PT BP WILL DECREASE TO THE 90'S. PT CONTINUES TO HAVE A LARGE AMOUNT OF OUTPUT FROM OSTOMY. OSTOMY OUTPUT CONTINUES TO BE WATERY AND BROWN. PT IS RECEIVING NS AT 150ML/HR THROUGH POWER PORT TO LEFT CHEST. PT CONSULTS CALLED TO ANSWERING SERVICE. PT NEPHROSTOMY HAS HAD APPROX 100ML URINE OUTPUT OVERNIGHT. PT URINE IS RYAN COLORED AND HAS A FOUL SMELL. PT HAS BEEN REPOSITIONING SELF ONTO BACK AND RIGHT SIDE THROUGH THE NIGHT. PICTURES TAKEN OF PRESSURE SORE TO RIGHT HIP. AREA IS REDDENED AND NONBLANCHABLE, DRESSING CHANGED AND PADDING APPLIED. REFER TO PICTURES IN CHART. PT HR HAS MAINTAINED IN THE 100-120 RANGE THROUGH THE NIGHT. PT HAS REMAINED ON ROOM AIR THROUGHOUT THE NIGHT WITH SPO2 IN THE MID 90'S. WILL REPORT OFF TO ONCOMING DAY SHIFT NURSE.
--- NOTE | 2018-09-12 07:30 | NUR ---
Recieved report from Stepan RN. Patient is able to communicate her needs and is very adimant about that her Dr. stated taht we would increase her pain med to 8mg Q2/hr of Dilaudid as she states she takes at home. I spoke with admitting and day hospitalists and karen stated that would increased meds.She stated that she called Dr Collins to come take care of her and I let her know that unless her hospitalist consults he would not be coming by to see her. Dr Wen called and asked why consults were re ordered after he dc'd for surgical and OBGYN and I canceled per his request again and called current hospitalist Dr Little and he stated when he sees patient and feels consult are needed he will put them in. She is on RA and sats are mid to upper 90%'s and systolic 90-100 with MAP >65 and HR is in the one teens. She has minimal amounts of cloudy yellow urine from Nepgrostomy tume and green bile liquids output in large amounts from Ilieostomy, emptied 350 from bag which started several days ago. Prior to canceling consults Dr Henderson international manager was in room interviweing patient and she was in unit and did not see patient.
--- NOTE | 2018-09-12 07:30 | NUR ---
Recieved report from Stepan RN. Patient is able to communicate her needs and is very atomate about Dr stating that they would increase her pain meds to 8mg Q2 for her dilaudid and spoke with admitting Dr and cyril hospitalist and karen stated they agree and let her know that. She also called Dr Collins she stated to come see her and let her know that he was not consulted and he would not be in to see her. Dr Villanueva called and asked why consults were recalled in for OBGYN and Surgical and wanted me to re cancel, which was done and called DR Little and let him know and asked if he wanted them re ordered and he stated no, not until he sees patient. She is on RA and sats upper 90%'s. She has mediport acced and is infusing NS at 150ml/hr. Her systolis 110-120 and MAP >65 with HR in the one teens. She has cloudy yellow urine from illeostomy and green bule liquid form ostomy which she states is new from a few days ago, emptied 300ml from ostomy and has minimal output from Illeostomy. Prior to cancaling OBGYN consult Dr Henderson student had been by to interview patient and shortly after Dr Hendesron was in [facility] and did not see patient.
--- NOTE | 2018-09-12 09:46 | NUR ---
Emptied another 500ml of liquid bile stool from Illieostomy. Dr Little has been by to see patient and will enter consult for Dr Collins. No other new orders. VSS.
--- NOTE | 2018-09-12 12:19 | NUR ---
Patient systolic down to [address] Collins and he stated to give 500 bolus of the 1/2 NS with bicarb and add NS at 50 ml/hr and see if systolic comes up and shortly after was uo to 94, HR 109.
--- NOTE | 2018-09-12 14:30 | NUR ---
She continues to call for constant ostomy emptying and she perfers to do it a certain way to do it. She continues to ask for pain meds and states left and right flank pain from past chemo. Medicating approx evry 4 hours for back/leg/stomack pain. She continues to have liquid bile green out put, Nephrostomy has cloudy nicolette output about 30ml/hr. She is very drowsy at times Systolic ranges 80-120 and HR 100-120's. She continues on 1/2 ns with bicarb at 100ml/hr and NS at 50ml/hr.
--- NOTE | 2018-09-12 17:30 | NUR ---
Aid helped with Female pad change and emptied ostomy and total for day about 2200ml, 400ml nephrostomy, and about 2200ml IV. Changed her linen at same time. No changes in fluid and systolic low 100's and HR low 100's as well. She will be going to medical floor. She has some concerns of right hip mepelex dressing that the adhesive may be irritating. Called Dr Collins with i&o's and no nwe orders.
--- NOTE | 2018-09-12 21:21 | NUR ---
ASSUMING CARE RECEIVED PT REPORT FROM ESEQUIEL COWAN. PT IS ALERT AND ORIENTED AT THIS TIME. PT BP HAS REMAINED STABLE THROUGH MUCH OF THE SHIFT WITH SYSTOLIC IN THE 90-100'S. PT HAS HAD OCCASIONAL DROPS INTO THE HIGH 80'S. PT REMAINS ASYMPTOMATIC AND HAS MAINTAINED MAP GREATER THAN 65. PT CONTINUES TO HAVE LARGE AMOUT OF LIQUIDY BROWN OUTPUT FROM OSTOMY SITE. PT REPORTS NAUSEA AND HAS BEEN PROVIDED PHENERGAN. PT CONTINUES TO REPORT PAIN IN BACK AND LEGS. PT PROVIDED DIALUDID PER EMAR. PT IS RECEIVING D5 1/2 NS W/ 75 OF BICARB AT 100ML/HR AND NS AT 50ML/HR. PT HAS NEPHROSTOMY TO THE RIGHT SIDE. PT URINE OUTPUT IS RYAN/TEA COLORED AT THIS TIME. PT SITTING UP IN BED USING PHONE AT THIS TIME. ASSUMING CARE OF PT AT THE TIME OF SHIFT REPORT. WILL CONTINUE TO MONITOR PT.
[2018-09-12 21:39] LABS: Vancomycin, Random 14.2 ug/mL
[2018-09-13 03:55] LABS: Hematocrit 32.7 % (33.0-51.0); Hemoglobin 10.6 g/dL (11.5-16.0)
[2018-09-13 04:18] LABS: Albumin, Blood 2.7 g/dL (3.4-5.0); Anion Gap 9 mmol/L (6-16); Blood Urea Nitrogen 39 mg/dL (8-24); CO2, Blood 23 mmol/L (21-32); Calcium, Blood 7.8 mg/dL (8.5-10.1); Chloride, Blood 107 mmol/L (98-108); Glomerular Filtration Rate 21 (60-); Glucose, Blood 96 mg/dL (70-99); Magnesium, Blood 1.3 mg/dL (1.6-2.4); Phosphorus, Blood 4.3 mg/dL (2.5-4.9); Potassium, Blood 3.8 mmol/L (3.5-5.5); Sodium, Blood 139 mmol/L (136-145)
--- NOTE | 2018-09-13 05:58 | NUR ---
SHIFT SUMMARY NOTE PT HAS REMAINED ALERT AND ORIENTED THROUGH THE NIGHT. PT CONTINUES TO REPORT PAIN IN BACK AND ABDOMEN. PT HAS BEEN PROVIDED DILAUDID FREQUENTLY THROUGH THE NIGHT PER EMAR. PT HAS REPORTED NAUSEA THROUGH THE NIGHT AND HAS BEEN PROVIDED ZOFRAN AND PHENERGAN MULTIPLE TIMES THROUGH THE NIGHT. NO EMESIS NOTED THROUGH THE NIGHT. PT CONTINUES TO HAVE COPIOUS AMOUNTS OF WATERY BROWN STOOL FROM OSTOMY. OSTOMY HAS BEEN EMPTIED MULTIPLE TIMES THROUGH THE NIGHT. REFER TO I/O CHARTING FOR DETAILS. PT IS RECEIVING NS AT 150ML/HR AT THIS TIME. PT FLUIDS WERE CHANGED PER DR GUSMAN ORDERS AT APPROX 0530. PT HR HAS REMAINED STABLE IN THE 100'S THROUGH THE NIGHT. PT BP HAS REMAINED STABLE WITH A SYSTOLIC IN THE 90-100 RANGE. WILL REPORT OFF TO ONCOMING DAY SHIFT NURSE.
--- NOTE | 2018-09-13 07:15 | NUR ---
START OF SHIFT NOTE: RECEIVED REPORT FROM ESEQUIEL MORRISON, ASSUMED CARE, PATIENT IS AWAKE AND TALKS VERY FAST, ASKING FOR PAIN AND NAUSEA MEDICATION SOON ROOM WAS ENTERED, ALERT AND ORIENTED, RA, O2 SATS IN UPPER 90'S, PATIENT HAS AN ILEOSTOMY ON RLQ WHICH FILLS UP VERY QUICKLY AND NEEDS TO BE EMPTIED FREQUENTLY, PATIENT ASKED IF WE COULD USE HER GROCERY BAGS TO EMPTY HER ILEOSTOMY, BUT WAS TOLD THAT THIS IS NOT AN OPTION, PATIENT ALSO HAS A RIGHT SIDED NEPHROSTOMY BAG, THAT IS DRAINING YELLOW URINE, AFEBRILE, VSS, LUNG SOUNDS DIMINISHED BUT CLEAR, SR/ST, HYPERACTIVE BOWEL SOUNDS, DR. GODWIN IN TO SEE PATIENT, NEW ORDERS RECEIVED, PATIENT REFUSED CLEAR LIQUID BREAKFAST BUT HAS SIX PACKS OF COKE AND SPRITE 32 OZ BOTTLES AT BEDSIDE, DR. MORENO ALSO IN TO SEE PATIENT, NO NEW ORDERS RECEIVED, CALL LIGHT IN REACH, WILL CONTINUE TO MONITOR.
--- NOTE | 2018-09-13 10:40 | NUR ---
PATIENT IS REFUSING REGULAR ORDERED DIET BUT CONTINUES INTAKE OF SODAS AND POPSICLES, ILEOSTOMY EMPTIED FREQUENTLY, CALL LIGHT IN REACH, WILL CONTINUE TO MONITOR.
--- NOTE | 2018-09-13 13:45 | NUR ---
PATIENT REFUSED TO HAVE MRSA SWAB DONE, SHE STATED THAT "THEY JUST SWABBED ME WHEN I WAS HERE IN A COMA LAST YEAR AND IT WAS NEGATIVE, SO I DON'T SEE WHY WE NEED ANOTHER SWAB", CALL LIGHT IN REACH, WILL CONTINUE TO MONITOR.
--- NOTE | 2018-09-13 16:04 | NUR ---
PATIENT IS RESTING AT THIS TIME, APPEARS TO BE SLEEPING, POSSIBLE TRANSFER TO MEDICAL FLOOR, CALL LIGHT IN REACH, WILL CONTINUE TO MONITOR.
--- NOTE | 2018-09-13 16:51 | NUR ---
REPORT WAS CALLED TO ESEQUIEL BERNSTEIN, ON MEDICAL FLOOR AND PATIENT WAS MOVED VIA BED AND WITH ALL BELONGINGS TO ROOM 302 AT 1648.
--- NOTE | 2018-09-13 17:08 | NUR ---
PT TRANSFERED/SHIFT SUMMARY PT TRANSFERED FROM ICU AT 1700. PT IN STBALE CONDITION. TELE APPLIED. PT ORIENTED TO ROOM. CALL LIGHT IN REACH. PT IN STABLE CONDITION WITH VSS. PT MEDICATED FOR PAIN PRIOR TO TRANSFER. WILL CONTINUE TO MONITOR UNTIL TURNOVER IS COMPLETE.
[2018-09-14 05:58] LABS: Hematocrit 34.3 % (33.0-51.0); Hemoglobin 10.8 g/dL (11.5-16.0)
[2018-09-14 06:16] LABS: Anion Gap 8 mmol/L (6-16); Blood Urea Nitrogen 29 mg/dL (8-24); Bun/Creatinine Ratio 11.9 (12.0-20.0); CO2, Blood 25 mmol/L (21-32); Calcium, Blood 8.3 mg/dL (8.5-10.1); Chloride, Blood 108 mmol/L (98-108); Creatinine, Blood 2.44 mg/dL (0.40-1.00); Glomerular Filtration Rate 22 (60-); Glucose, Blood 84 mg/dL (70-99); Magnesium, Blood 2.2 mg/dL (1.6-2.4); Phosphorus, Blood 4.2 mg/dL (2.5-4.9); Potassium, Blood 3.3 mmol/L (3.5-5.5); Sodium, Blood 141 mmol/L (136-145)
--- NOTE | 2018-09-14 06:34 | NUR ---
Rn Summary: Pt is alert and oriented. Pt has chronic pain and has been medicated with diladid 1mg q 2 hours. Pt is very concerned about her illeostomy stoma, she feels it is swollen. Stoma is a healthy red. Pt changed her wafer and bag. Pt has vaginal drainage. Drainage is thick white mares in color with strong odor. Pt assisted with pericare and changing clothes. Pt did go out with animal care supervisor x1 late evening. Pt has not rested at all this shift. Mediport flushed well but would not draw blood this am. Pt is tearful at times. Call light in reach.
--- NOTE | 2018-09-14 08:06 | NUR ---
UPON SHIFT CHANGE WITH BEDSIDE REPORT, NURSE OBSERVED PT EMPTYING ILIOSTOMY INTO GROCERY BAG. NURSE EDUCATED PT ABOUT BIOHAZARD AND DISPOSED OF LIQUID PROPERLY.
--- NOTE | 2018-09-14 18:05 | NUR ---
SHIFT SUMMARY PT AXO AND EMOTIONALLY LABILE. PT HAS HAD LARGE AMOUNTS OF LIQUID BROWN STOOL DRAINING FROM OSTOMY. PT COMPLAINS OF NAUSEA AND STOMACH PAIN, MEDICATED PER EMAR. PT ATE SOME CHICKEN NOODLE SOUP THAT A FAMILY MEMBER BROUGHT IN DESPITE EDUCATION TO ADHERE TO CLEAR LIQUID DIET (DUE TO PT REQUIRING NAUSEA MEDICATION AND WAS THEREFORE NOT TOLERATING CURRENT DIET) NAUSEA AND PAIN INCREASED AFTER. PT AGREED TO THEN FOLLOW CLEAR LIQUID DIET. COMPLAINS OF PAIN "OVER 10", MEDICATED PER EMAR.
--- NOTE | 2018-09-14 20:47 | NUR ---
PT OFF FLOOR TO SMOKE WITH DAUGHTER. PATTERN GRADER SUPERVISOR ADVISED.
--- NOTE | 2018-09-15 03:15 | NUR ---
1999 THIS NURSE ENTERED ROOM AND PATIENT STATED, "I'M GOING OUTSIDE SMOKE WHENEVER I PLEASE". PT ADVISED THAT SHE ON A HOP STRAINER AND IV PUMP (PT IS UNABLE TO AMBULATE AND REQUIRES SOMEONE TO PUSH HER OUT--DAUGHTER ARRIVED AND AGREE TO PERFORM THIS TASK). THIS NURSE CONFERENCED WITH CHARGE NURSE--ESEQUIEL IGLESIAS REGARDING THE ABOVE. PT AGREED TO BE BACK IN 45 MINUTES FROM SMOKE BREAK. PT DENIES PAIN OR NAUSEA. 2129 PT RETURNED FROM SMOKING OUTSIDE AND WAS GIVEN HER SCHEDULED XANAX 1MG, IV WAS RECONNECTED. PT DENIES NEEDING ANY PAIN OR NAUSEA MEDS. 199 PT C/O ACHE AND PAIN ALL OVER ENTIRE BODY RATED A 10/10 (DILAUDID 1MG IVP GIVEN). PT STATED, "YOU GAVE ME PAIN MEDS WHEN I RETURNED FROM SMOKING YOU WERE HOOKING BACK UP MY IV". THIS NURSE ADVISED PATIENT THAT SHE DID NOT GET ANY PAIN MEDS AT THAT TIME SHE VOICED NO PAIN. PT VERY ARGUMENTATIVE AT TIMES AND WOULD NOT LISTEN TO EXPLANATIONS THIS NURSE PROVIDED. PT STATED, "MALA BEEN ON LARGE DOSES OF OXYCODONE, NORCO AND FENTANY FOR YEARS AND I KNOW MY NARCOTICS VERY WELL". PT ALSO C/O NAUSEA WITH ZOFRAN 4MG IVP GIVEN.
--- NOTE | 2018-09-15 05:06 | NUR ---
52 Y/O FEMALE RESTED POORLY ALL EVENING AT TIMES. PTS TENDS TO NOT LISTEN TO STAFF AND BELIEVES SHE KNOWS EVERYTHING. PT AT TIMES UNABLE TO STAY FOCUSED ON SUBJECT AT HAND AND REQUIRES REFOCUSING BY THIS NURSE. PTS NEPHROSTOMY DRAINING LIGHT TEA COLORED FLUID, UROSTOMY DRAINING YELLOW FLUID WITH WHITE SEDIMENTL. PTS LEFT UPPER MEDIPORT INTACT (FLUSHES HARD AT TIMES WHEN IV PAIN MEDS WERE GIVEN). PT INSISTING THAT HER AM LABS SHOULD BE DRAWN FROM PORT (CHARGE NURSE VOICED THAT NO OTHER NURSE HAS BEEN ABLE TO DRAW LABS FROM THIS PORT TO DATE, THUS LABS WILL BE DRAWN PERIPHERALLY TODAY AND PATIENT IS RELUCTANLY OK WITH THIS). PT RECEIVED PAIN AND NAUSEA RELIEF TONIGHT WITH DILAUDID, ZOFRAN AND PHENERGAN. PTS BED LOW POSITION, CALL LIGHT AT SIDE.
[2018-09-15 05:25] LABS: Hematocrit 32.2 % (33.0-51.0); Hemoglobin 10.1 g/dL (11.5-16.0)
[2018-09-15 05:56] LABS: Albumin, Blood 2.8 g/dL (3.4-5.0); Anion Gap 10 mmol/L (6-16); Blood Urea Nitrogen 20 mg/dL (8-24); CO2, Blood 20 mmol/L (21-32); Chloride, Blood 113 mmol/L (98-108); Creatinine, Blood 2.01 mg/dL (0.40-1.00); Glomerular Filtration Rate 28 (60-); Glucose, Blood 82 mg/dL (70-99); Magnesium, Blood 2.1 mg/dL (1.6-2.4); Phosphorus, Blood 3.7 mg/dL (2.5-4.9); Potassium, Blood 3.5 mmol/L (3.5-5.5); Sodium, Blood 143 mmol/L (136-145)
--- NOTE | 2018-09-15 12:02 | NUR ---
[id number]: IV FLUIDS STOPPED AND IV CATH RIGO INSTILLED PER PROTOCOL. CAP TAPED OFF FOR NON USAGE. IV CATH RIGO REMOVED AND GOOD BLOOD RETURN, 6ML, WASTE. NEW END CAP PLACED AND IV FLUID RESTARTED.
--- NOTE | 2018-09-15 18:36 | NUR ---
SHIFT SUMMARY PT AXO. VSS, AFEBRILE AT THIS TIME. UP VIA WHEELCHAIR TO SMOKE X1 THIS SHIFT. PT MEDICATED FOR PAIN PER EMAR THOUGH STATES PAIN NEVER GOT BELOW A 9. DESPITE THAT, PT RESTING COMFORTABLY AND SLEEPING INTERMITTANTLY THROUGHOUT THE SHIFT. PT CONTINUES TO DRAIN TRANSPARENT GREEN/BROWN STOOL FREQUENTLY. NEPHROSTOMY PATENT AND DRAINING. PT EXTREMELY TALKATIVE AND COMPLAINS FREQUENTLY. NURSE APPLIED ACTIVE LISTENING AND THERAPEUTIC COMMUNICATION TO COMFORT PT AND EDUCATE HER. IX0 CALLED TO DR GODWIN AT 1740. BED IN LOW POSITION, CALL LIGHT WITHIN REACH. MEDIPORT PATENT AND INFUSING NS AT 150 ML/HR AND CLINIMIX AT 50 ML HR.
[2018-09-16 04:39] LABS: Hematocrit 29.7 % (33.0-51.0); Hemoglobin 9.3 g/dL (11.5-16.0)
[2018-09-16 04:55] LABS: Albumin, Blood 2.7 g/dL (3.4-5.0); Anion Gap 6 mmol/L (6-16); Blood Urea Nitrogen 15 mg/dL (8-24); Bun/Creatinine Ratio 9.1 (12.0-20.0); CO2, Blood 22 mmol/L (21-32); Chloride, Blood 117 mmol/L (98-108); Creatinine, Blood 1.65 mg/dL (0.40-1.00); Glomerular Filtration Rate 35 (60-); Glucose, Blood 89 mg/dL (70-99); Phosphorus, Blood 3.2 mg/dL (2.5-4.9); Potassium, Blood 3.6 mmol/L (3.5-5.5); Sodium, Blood 145 mmol/L (136-145)
--- NOTE | 2018-09-16 05:56 | NUR ---
52 Y/O FEMALE REQUESTED PAIN MEDS EVERY TWO WITH NAUSEA MEDICATION FOR ABDOMINAL DISCOMFORTANT ALL SHIFT. PTS DOES NOT SLEEP AND WATCHES CLOCK CLOSELY FOR OBTAINING MEDS ORDERED. PT APPEARS TO NOT BE IN ANY SEVERE PAIN DURING ASSESSMENT, HOWEVER; SHE RATES THE PAIN BETWEEN 5-7 ON A 1-10 SCALE. PTS PASSING LIQUID BROWN FLUID VIA ILEOSTOMY AND TEA COLORED FLUID VIA NEPHROSTOMY TUBE. PT DID GO OUTSIDE TO SMOKE X 1 DURING SHIFT AROUND 2215 WITH A FRIEND FOR 45 MINUTES. THIS NURSE WAS ABLE TO DRAW BLOOD OFF LEFT UPPER CHEST MEDIPORT FOR AM LABS TODAY WITHOUT ISSUE. PT ABLE TO REPOSITION SELF IN BED. PTS BED IN LOW POSITION, CALL LIGHT AT SIDE.
[2018-09-17 05:55] LABS: Hematocrit 31.8 % (33.0-51.0); Hemoglobin 9.9 g/dL (11.5-16.0)
--- NOTE | 2018-09-17 05:57 | NUR ---
52 Y/O FEMALE RESTLESS ALL NIGHT, USED CALL LIGHT EVERY 2 HOURS TO REQUEST PAIN AND NAUSEA MEDS (DILAUDID 1 MG IVP, ZOFRAN 4MG AND PHENERGAN 25MG IVP GIVEN IN ALTERNATION WITH THE DILAUDID EVERY 4 HOURS). PTS PASSING LARGE AMOUNTS LIQUID BROWN FLUID VIA ILEOSTOMY (PT VOICED, "I NEVER FELT LIKE THIS BEFORE MY WHOLE LIFE". NEPHOSTOMY DRAINING TEA COLORED FLUID. PT DID GO OUTSIDE SMOKE X 1 THIS SHIFT WITH FRIEND.
[2018-09-17 06:16] LABS: Albumin, Blood 2.8 g/dL (3.4-5.0); Anion Gap 8 mmol/L (6-16); Blood Urea Nitrogen 14 mg/dL (8-24); Bun/Creatinine Ratio 8.9 (12.0-20.0); CO2, Blood 20 mmol/L (21-32); Calcium, Blood 8.3 mg/dL (8.5-10.1); Chloride, Blood 117 mmol/L (98-108); Creatinine, Blood 1.58 mg/dL (0.40-1.00); Glomerular Filtration Rate 37 (60-); Glucose, Blood 91 mg/dL (70-99); Phosphorus, Blood 3.2 mg/dL (2.5-4.9); Potassium, Blood 3.7 mmol/L (3.5-5.5); Sodium, Blood 145 mmol/L (136-145)
--- NOTE | 2018-09-17 18:35 | NUR ---
PATIENT CONTINUES TO REQUEST PAIN MEDS OFTEN BEFORE THEY ARE ALLOWED TO BE GIVEN. SHE HAS BEEN ABLE TO SLEEP THIS SHIFT BUT HAS NOT TAKEN IN ANY FOOD FROM HER TRAY. SHE HAS CONTINUED TO HAVE WATERY OUTPUT FROM HER ILIOSTOMY WHICH SHE STATES IS MORE THAN NORMAL. SHE HAS REPORTED THAT SOME OF HER MEDS HAVE COME OUT IN HER BAG YET OTHERS HAVE BEEN DIGESTED. SHE IS PLEASANT WHEN SHE IS GETTING WHAT SHE WANTS. SHE HAS THREATENED TO GO HOME WHEN SHE KNEW HER IV PAIN MEDS WHERE BEING CHANGED TO PO. SHE DID AGREE TO TAKE HER PO MEDS AND HAS NOT ASKED FOR MORE .
--- NOTE | 2018-09-17 19:13 | NUR ---
Pt has not wanted discussion. Will try agin with differnt staff to see if we can formulate a plan
--- NOTE | 2018-09-18 05:09 | NUR ---
SHIFT SUMMARY PT HAS HAD SEVERAL C/O'S PAIN AND NAUSEA T/O THE NIGHT. HAS BEEN MEDICATED PER EMAR. PT UPSET THAT SHE IS UNABLE TO HAVE HER PRESCRIPTIONS FROM PHARMACY. INFORMED PT SHE WILL GET THEM BACK UPON DISCHARGE. PT STATES SHE WILL BE DISCHARGED TODAY WHETHER THE DR WANTS HER TO OR NOT. PT REFUSING PROTONIX THIS AM STATES IT JUST GOES RIGHT THROUGH HER ANYWAYS AND DOESN'T DO ANY GOOD. WILL CONTINUE TO MONITOR.
[2018-09-18 05:36] LABS: Hematocrit 28.4 % (33.0-51.0); Hemoglobin 8.8 g/dL (11.5-16.0)
[2018-09-18 06:04] LABS: Albumin, Blood 2.5 g/dL (3.4-5.0); Anion Gap 6 mmol/L (6-16); Blood Urea Nitrogen 22 mg/dL (8-24); Bun/Creatinine Ratio 14.1 (12.0-20.0); CO2, Blood 20 mmol/L (21-32); Calcium, Blood 7.7 mg/dL (8.5-10.1); Chloride, Blood 115 mmol/L (98-108); Creatinine, Blood 1.56 mg/dL (0.40-1.00); Glomerular Filtration Rate 37 (60-); Glucose, Blood 93 mg/dL (70-99); Magnesium, Blood 1.8 mg/dL (1.6-2.4); Phosphorus, Blood 3.5 mg/dL (2.5-4.9); Potassium, Blood 3.9 mmol/L (3.5-5.5); Sodium, Blood 141 mmol/L (136-145)
[2018-09-18] MEDS ORDERED: PROBIOTIC GOLD1 EACH PO (10:01)
[2018-09-18] MEDS ORDERED: CEFPODOXIME PO (10:04)
--- NOTE | 2018-09-18 11:04 | NUR ---
1030 NURSE DEACCESSED PATIENTS PORT PER PROTOCOL. PATIENT TOLERATED WELL. NURSE WENT OVER MEDS AND INSTRUCTED PATIENT TO FOLLOW UP WITH HER DOC. MEDS FAXED INTO [facility] PER PATIENT INSTRUCTIONS.
== END 2018-09-18 11:29 | disposition home or self-care (01) | DRG 698 ==
LOC: ER 16:11 → ICUE 22:06 → ICUW 22:06 → MEDS 22:06 → ICUE 22:44 → MEDS 09-13 16:47 → ENPENDDIS 09-18 09:05 → MEDS 09-18 11:29
PROVIDERS: Emergency Medicine; Internal Medicine Nephrology; Nurse Practitioner Acute Care; ADMIT Internal Medicine
DX: T83.512A Infection and inflammatory reaction due to nephrostomy catheter, initial encounter (principal); A41.9 Sepsis, unspecified organism; R65.21 Severe sepsis with septic shock; E87.2 Acidosis; F11.20 Opioid dependence, uncomplicated; N17.9 Acute kidney failure, unspecified; N18.4 Chronic kidney disease, stage 4 (severe); N39.0 Urinary tract infection, site not specified; E83.42 Hypomagnesemia; E87.6 Hypokalemia; F41.1 Generalized anxiety disorder; G89.4 Chronic pain syndrome; Z79.01 Long term (current) use of anticoagulants; Z85.41 Personal history of malignant neoplasm of cervix uteri; Z86.718 Personal history of other venous thrombosis and embolism; Z86.711 Personal history of pulmonary embolism; F17.210 Nicotine dependence, cigarettes, uncomplicated
CPT/HCPCS: 36415; 71045; 74176; 80048; 80053; 80069; 80202; 81001; 82550; 82803; 83605; 83615; 83690; 83735; 84484; 85014; 85018; 85025; 85027; 87040; 87070; 87075; 87077; 87086; 87186; 87205; 87493; 87507; 93005; 93010; 96361; 96365; 96375; 96376; 99285-25; C9113; J0696; J0881; J1170; J1642; J2405; J2543; J2550; J2997; J3370; J3475; J3480; J7030; J7040; J7120

== ENCOUNTER 2018-11-14 10:40 | Inpatient (IN) | payer OTHER ==
[~2018-11-14] VITALS: Ht 167.6 cm; Wt 52.4 kg
[~2018-11-14 10:40] MED LIST changes: +ALBU90OI INH; +CEFPODOXIME PO; -ELIQUIS2.5 MG PO; +Miralax17 GM PO; +Questran4 GM PO; +Roxicodone15 MG PO
[2018-11-14 12:15] LABS: BASOPHILS ABSOLUTE AUTO 0.03 K/mm3 (0.00-0.23); BASOPHILS PERCENT AUTO 0 % (0-2); EOSINOPHILS ABSOLUTE AUTO 0.01 K/mm3 (0.00-0.68); EOSINOPHILS PERCENT AUTO 0 % (0-6); Hematocrit 49.1 % (33.0-51.0); Hemoglobin 15.5 g/dL (11.5-16.0); IMMATURE GRAN ABSOLUTE AUTO 0.02 K/mm3 (0.00-0.10); IMMATURE GRAN PERCENT AUTO 0 % (0-1); LYMPHOCYTES ABSOLUTE AUTO 1.16 K/mm3 (0.84-5.20); LYMPHOCYTES PERCENT AUTO 13 % (21-46); MONOCYTES ABSOLUTE AUTO 1.04 K/mm3 (0.16-1.47); MONOCYTES PERCENT AUTO 12 % (4-13); Mean Corpuscular HGB 29.4 pg (26.0-34.0); Mean Corpuscular HGB Conc 31.6 g/dL (31.5-36.5); Mean Corpuscular Volume 93 fL (80-100); Mean Platelet Volume 9.2 fL (9.1-12.4); NEUTROPHILS ABSOLUTE AUTO 6.66 K/mm3 (1.96-9.15); NEUTROPHILS PERCENT AUTO 75 % (41-73); Platelet Count 324 K/mm3 (150-400); RDW Coefficient Variation 14.9 % (11.7-14.2); RDW Standard Deviation 51.8 fL (35.1-46.3); Red Blood Cell Count 5.28 M/mm3 (3.80-5.20); White Blood Cell Count 8.92 K/mm3 (4.00-11.30)
[2018-11-14 12:39] LABS: Albumin, Blood 4.1 g/dL (3.4-5.0); Albumin/Globulin Ratio 0.8 (0.8-1.8); Bilirubin, Total 0.7 mg/dL (0.1-1.0); Bun/Creatinine Ratio 15.4 (12.0-20.0); Calcium, Blood 9.9 mg/dL (8.5-10.1); Creatinine, Blood 2.92 mg/dL (0.40-1.00); Globulin, Blood 4.9 g/dL (2.2-4.0); Potassium, Blood 3.7 mmol/L (3.5-5.5)
[2018-11-14 12:42] LABS: International Normalized Ratio 0.97; Prothrombin Time Results 10.3 Sec (9.7-11.5)
[2018-11-14] MEDS ORDERED: ELIQUIS5 MG PO (14:54)
[2018-11-14] MEDS ORDERED: ALPR1 PO (15:43)
[2018-11-14] MEDS ORDERED: PROM25 PO (15:46)
[2018-11-14] MEDS ORDERED: PROBIOTIC GOLD1 EACH PO (15:46)
[2018-11-14] MEDS ORDERED: Vitamin D2000 UNIT PO (15:47)
[2018-11-14] MEDS ORDERED: CYAN500 PO (15:47)
[2018-11-14 16:22] LABS: Source, Urine Catheter
[2018-11-14 16:39] LABS: Blood, Urine 5+ (Neg); Glucose Qualitative, Urine Neg (Neg); Ketones, Urine 2+ (Neg); Leukocyte Esterase, Urine 2+ (Neg); Nitrite, Urine Pos (Neg); Protein, Urine 3+ (Neg); Specific Gravity, Urine 1.025 (1.003-1.022); Urobilinogen, Urine 1+ (Normal)
[2018-11-14 16:51] LABS: Appearance, Urine Cloudy (Clear); Bilirubin, Urine 2+ (Neg); Color, Urine Yellow (P-Yellow)
[2018-11-14 16:53] LABS: Squamous Epithelial Cells Few /hpf (Few)
[2018-11-14 16:54] LABS: Calcium Oxalate Crystals Rare /hpf
[2018-11-14 16:55] LABS: Bacteria Many /hpf; Red Blood Cells, Urine 25-50 /hpf (0-2)
--- NOTE | 2018-11-14 18:23 | NUR ---
SUMMARY PT ADMITTED FROM THE ER, PT IS ALERT AND ORIENTED, BED BOUND AT BASELINE, MED FOR PAIN AND NAUSEA ON ADMIT, HAD TO CALL DR KO FOR ADDITIONAL PAIN MEDS, CALLED FOR ADDITIONAL NAUSEA MEDS TOO, BUT NO ORDER FOR THAT, PT HAS A MEDIPORT THAT WAS ACCESSED IN THE ER, FLUIDS INFUSING, PT HAS A R NEPHROSTOMY TUBE DRAINING DARK CLOUDY URINE, PT HAS A ILIOSTOMY TO HER R ABD DRAINING LIQUID STOOL, PT WITH EMESIS THAT IS DARK IN COLOR, PT HAS A SMALL OPEN AREA TO HER R HIP, PICTURE TAKEN, AREA COVERED WITH FOAM DRESSING, ORIENTED PT TO ROOM AND CALL SYSTEM, WILL CONT TO MONITOR
[2018-11-14 20:54] LABS: Campylobacter Sp Not Detected (NOT DETECT)
[2018-11-14 20:55] LABS: Adenovirus F 40/41 Not Detected (NOT DETECT); Astrovirus Not Detected (NOT DETECT); Cryptosporidium Not Detected (NOT DETECT); Cyclospora Cayetanensis Not Detected (NOT DETECT); E. Coli O157 Not Detected (NOT DETECT); Entamoeba Histolytica Not Detected (NOT DETECT); Enteroaggregative E. coli-EAEC Not Detected (NOT DETECT); Enteropathogenic E. coli-EPEC Not Detected (NOT DETECT); Enterotoxigenic E. coli-ETEC Not Detected (NOT DETECT); Giardia Lamblia Not Detected (NOT DETECT); Norovirus GI/GII Not Detected (NOT DETECT); Plesiomonas Shigelloides Not Detected (NOT DETECT); Rotavirus A Not Detected (NOT DETECT); Salmonella Sp Not Detected (NOT DETECT); Sapovirus Not Detected (NOT DETECT); Shiga Toxin-prod E. coli-STEC Not Detected (NOT DETECT); Shigella/Enteroin E. coli-EIEC Not Detected (NOT DETECT); Vibrio Cholerae Not Detected (NOT DETECT); Vibrio Sp Not Detected (NOT DETECT); Yersinia Enterocolitica Not Detected (NOT DETECT)
--- NOTE | 2018-11-15 06:10 | NUR ---
SHIFT SUMMARY PATIENT IS ALERT AND ORIENTED USES CALL LIGHT APPROPRIATELY. PT IS BEDBOUND. PT REQUESTS FOR PAIN MEDICINE VERY FREQUENTLY. PATIENT VOMITED A COUPLE TIMES THROUGHOUT THE NIGHT. VITALS STABLE.
[2018-11-15 07:19] LABS: Bun/Creatinine Ratio 17.8 (12.0-20.0); Calcium, Blood 8.5 mg/dL (8.5-10.1); Creatinine, Blood 2.59 mg/dL (0.40-1.00); Potassium, Blood 3.5 mmol/L (3.5-5.5)
--- NOTE | 2018-11-15 17:31 | NUR ---
SHIFT SUMMARY THE PATIENT PRESENTED THIS SHIFT A&O X4, WITH LUNG SOUNDS THAT WERE CLEAR, BUT DIM AT THE BASES. THE PATIENT'S VIALS WERE WNL, EXCEPT HEART RATE WAS 113 BEATS PER MIN. THE PATIENT HAS BEEN CALLING FOR PAIN MEDICATIONS Q2 OR BEFORE. THE PATIENT WENT OUT SIDE FOR A SHORT WHILE TODAY AND HAS HER DAUGHTER VISIT HER. THE PATIENT HAS COMPLAINED OF NAUSEA ALL SHIFT INSPITE OF HAVING MEDICATIONS DIRECTED. THE PATIENT IS VISITING WITH HER DAUGHTER AT THIS TIME, WILL CONTINUE TO MONITOR.
--- NOTE | 2018-11-16 03:21 | NUR ---
PT REQUESTING IV DILAUDID AND IV ANTIEMETICS Q 2 HOURS FOR ACUTE ON CHRONIC PAIN AND ACUTE ON CHRONIC NAUSEA. SHE HAS ILEOSTOMY AND LIQUID WATERY DARK STOOL OUT. CO UPPER EPIGASTRIC PAIN FROM VOMITING PRIOR TO ADMISSION. MEDICATED Q 2 HOURS PRN WITH 2 MG IV DILAUDID AND EITHER ZOFRAN OR 12.5 MG PHENERGAN. ON TELE MONITIR SINUS TACH UP TO 120 OR NSR RATE IN 90s. sUPPORT OFFERED. CARES FOR OWN OSTOMY. HAS NEPH TUBE X 10 YEARS. MULTIPLE MEDICAL PROBLEMS. HAS FAMILY TAKE HER OUT TO SMOKE X 1 . CONTINUES ON CLINIMIX AND NS IV FLUIDS.
[2018-11-16 04:04] LABS: Hematocrit 32.2 % (33.0-51.0); Hemoglobin 10.3 g/dL (11.5-16.0)
[2018-11-16 04:27] LABS: Anion Gap 7 mmol/L (6-16); Blood Urea Nitrogen 51 mg/dL (8-24); Bun/Creatinine Ratio 24.8 (12.0-20.0); CO2, Blood 25 mmol/L (21-32); Calcium, Blood 8.3 mg/dL (8.5-10.1); Chloride, Blood 108 mmol/L (98-108); Creatinine, Blood 2.06 mg/dL (0.40-1.00); Glomerular Filtration Rate 27 (60-); Glucose, Blood 90 mg/dL (70-99); Magnesium, Blood 1.6 mg/dL (1.6-2.4); Phosphorus, Blood 3.2 mg/dL (2.5-4.9); Potassium, Blood 3.7 mmol/L (3.5-5.5); Sodium, Blood 140 mmol/L (136-145)
--- NOTE | 2018-11-16 18:50 | NUR ---
PT. LYING QUIETLY AT THIS TIME WATCHING T.V. 2MG IV DILAUDID GIVEN AT 1745. LAST PHENERGAN GIVEN AT 1547. PT. INSISTED ON GOING OUT TO SMOKE TODAY AND CAME BACK NAUSEATED. ZOFRAN GIVEN AT THAT TIME. HAS NOT TRIED TO GO OUT AGAIN TODAY. NO NOTEABLE CHANGES THIS SHIFT.
[2018-11-17 06:08] LABS: BASOPHILS ABSOLUTE AUTO 0.02 K/mm3 (0.00-0.23); BASOPHILS PERCENT AUTO 0 % (0-2); EOSINOPHILS ABSOLUTE AUTO 0.21 K/mm3 (0.00-0.68); EOSINOPHILS PERCENT AUTO 3 % (0-6); Hematocrit 29.5 % (33.0-51.0); Hemoglobin 9.3 g/dL (11.5-16.0); IMMATURE GRAN ABSOLUTE AUTO 0.03 K/mm3 (0.00-0.10); IMMATURE GRAN PERCENT AUTO 1 % (0-1); LYMPHOCYTES ABSOLUTE AUTO 1.62 K/mm3 (0.84-5.20); LYMPHOCYTES PERCENT AUTO 25 % (21-46); MONOCYTES ABSOLUTE AUTO 0.46 K/mm3 (0.16-1.47); MONOCYTES PERCENT AUTO 7 % (4-13); Mean Corpuscular HGB 29.4 pg (26.0-34.0); Mean Corpuscular HGB Conc 31.5 g/dL (31.5-36.5); Mean Corpuscular Volume 93 fL (80-100); Mean Platelet Volume 9.4 fL (9.1-12.4); NEUTROPHILS ABSOLUTE AUTO 4.03 K/mm3 (1.96-9.15); NEUTROPHILS PERCENT AUTO 63 % (41-73); Platelet Count 190 K/mm3 (150-400); RDW Coefficient Variation 14.6 % (11.7-14.2); Red Blood Cell Count 3.16 M/mm3 (3.80-5.20); White Blood Cell Count 6.37 K/mm3 (4.00-11.30)
--- NOTE | 2018-11-17 06:18 | NUR ---
pt continues to co acute on chronic pain. requests IV dilaudid every 2 hours. medicated multiple times with antiemetic and pain med with mild helpful effect. PT has high narcotic tolerance, low pain tolerance. tolerating some diet and able to care for ostomy and neph tube. has lt chest implanted port accessed and running clinimix 50 ml hr as well as ns at 50 ml hr. Urine culture shows ecoli uti. Continue to sleep very little.
[2018-11-17 06:24] LABS: Albumin, Blood 2.7 g/dL (3.4-5.0); Anion Gap 8 mmol/L (6-16); Blood Urea Nitrogen 39 mg/dL (8-24); Bun/Creatinine Ratio 23.9 (12.0-20.0); CO2, Blood 21 mmol/L (21-32); Chloride, Blood 113 mmol/L (98-108); Creatinine, Blood 1.63 mg/dL (0.40-1.00); Glomerular Filtration Rate 35 (60-); Glucose, Blood 100 mg/dL (70-99); Magnesium, Blood 1.6 mg/dL (1.6-2.4); Phosphorus, Blood 2.8 mg/dL (2.5-4.9); Potassium, Blood 4.2 mmol/L (3.5-5.5); Sodium, Blood 142 mmol/L (136-145)
--- NOTE | 2018-11-17 19:00 | NUR ---
PT. SITTING ON SIDE OF BED WANTING UNHOOKED TO GO OUTSIDE. TOLD HER SHE NEEDED TO WAIT FOR SHIFT CHANGE. PT. WENT OUT THIS MORNING AROUND 1145. NEVER RETURNED TO ROOM UNTIL 1400, CAME BACK WITH FRIEND PUSHING HER, AND ASKING FOR PAIN MEDICATION. NO OTHER NOTEABLE CHANGES THIS SHIFT.
--- NOTE | 2018-11-18 01:25 | NUR ---
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 ILEOSTOMY PATENT AND ACTIVE. 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 SEES SPECIALIST IN [place]. CONSTANTLY THINKING ABOUT NARCOTICS TALKING ABOUT NARCOTICS USING NARCOTICS AND ANTIEMENTICS Q 2 HOURS FOR CHRONIC PAIN AND CHRONIC NAUSEA. 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 RT NEPH TUBE, NO LT KIDNEY. DOES NOT VOID LARGE VOLUMES OF LIQUID STOOL OUT ILEOSTOMY. PT CO FOUL SMELLING VAGINAL DRAINAGE NONE SEEN. ON CIPRO AND ROCEPHIN FOR ECOLI UTI, CHRONIC INFECTIONS. STATED ANTIBIOTIC RESISTANCE TO ALL BUT ROCEPHIN AND A RX THAT STARTS WITH M?. OUT TO SMOKE X 1. CESSATION ENCOURAGED. DISABLED HAS CAREGIVERS AVAILABLE FROM FAMILY. ABLE TO CARE FOR SELF AND SELF TRANSFER. SUPPORT OFFERED FOR CURRENT AND ONGOING HEALTH ISSUES.
[2018-11-18 05:17] LABS: BASOPHILS ABSOLUTE AUTO 0.02 K/mm3 (0.00-0.23); BASOPHILS PERCENT AUTO 0 % (0-2); EOSINOPHILS ABSOLUTE AUTO 0.28 K/mm3 (0.00-0.68); EOSINOPHILS PERCENT AUTO 5 % (0-6); Hematocrit 28.3 % (33.0-51.0); Hemoglobin 8.9 g/dL (11.5-16.0); IMMATURE GRAN ABSOLUTE AUTO 0.03 K/mm3 (0.00-0.10); IMMATURE GRAN PERCENT AUTO 1 % (0-1); LYMPHOCYTES ABSOLUTE AUTO 1.76 K/mm3 (0.84-5.20); LYMPHOCYTES PERCENT AUTO 30 % (21-46); MONOCYTES PERCENT AUTO 9 % (4-13); Mean Corpuscular HGB 29.7 pg (26.0-34.0); Mean Corpuscular HGB Conc 31.4 g/dL (31.5-36.5); Mean Corpuscular Volume 94 fL (80-100); Mean Platelet Volume 9.1 fL (9.1-12.4); NEUTROPHILS ABSOLUTE AUTO 3.28 K/mm3 (1.96-9.15); NEUTROPHILS PERCENT AUTO 56 % (41-73); Platelet Count 200 K/mm3 (150-400); RDW Coefficient Variation 14.6 % (11.7-14.2); RDW Standard Deviation 50.3 fL (35.1-46.3); White Blood Cell Count 5.87 K/mm3 (4.00-11.30)
[2018-11-18 05:40] LABS: Albumin, Blood 2.6 g/dL (3.4-5.0); Anion Gap 6 mmol/L (6-16); Blood Urea Nitrogen 36 mg/dL (8-24); Bun/Creatinine Ratio 25.4 (12.0-20.0); CO2, Blood 22 mmol/L (21-32); Calcium, Blood 8.2 mg/dL (8.5-10.1); Chloride, Blood 117 mmol/L (98-108); Creatinine, Blood 1.42 mg/dL (0.40-1.00); Glomerular Filtration Rate 41 (60-); Glucose, Blood 89 mg/dL (70-99); Magnesium, Blood 1.6 mg/dL (1.6-2.4); Potassium, Blood 4.2 mmol/L (3.5-5.5); Sodium, Blood 145 mmol/L (136-145)
--- NOTE | 2018-11-18 10:10 | NUR ---
MAURICE, PT REFUSING TO TAKE FULL 5MG DOSE OF MEDICATIONS, STATES SHE ONLY TAKES 2.5 MG ONCE DAILY AT HOME. WILL CONTINUE TO MONITOR.
--- NOTE | 2018-11-18 17:48 | NUR ---
SHIFT SUMMARY PT A&Ox4. CALM AND COOPERATIVE WITH CARE. PT RESTING IN BED DURING SHIFT. IND/SBA TRANSFER TO HOME WHEELCHAIR. PT WHEELCHAIR BOUND AT BASELINE. NO MOVEMENT IN BLE, PT REPROTS NO FEELING, EDEMA IS WORSE IN LLE THEN RLE, ENCOURAGED PT TO ELEVATE BLE. PT REPORTS CHRONIC PAIN "ALL OVER", 8-03/13, MEDICATED Q2-2.5 HOURS. PT REPORTS NAUSEA, MEDICATED X2, ONCE WITH ZOFRANS AND ONCE WITH PHENERGAN. PT DENIES SOB, >92% ON RA. PT RECEIVING IV AND PO ANTIBIOTICS. FLUIDS D/C THIS AM, HEPARIN FLUSHED ORDERED PER PROTOCOL FOR MEDIPORT. PT REPORTS CALL/BROWN DISCHARGE, NONE NOTED DURING SHIFT. PT REFUSING FULL DOSE OF ELIQUIS. VSS. NO OTHER ACUTE CHANGES NOTED DURING SHIFT. WILL CONTINUE TO MONITOR UNTIL REPORT GIVEN TO ONCOMING RN.
[2018-11-19 05:47] LABS: Hematocrit 29.7 % (33.0-51.0); Hemoglobin 9.2 g/dL (11.5-16.0)
[2018-11-19 06:06] LABS: Albumin, Blood 2.7 g/dL (3.4-5.0); Anion Gap 6 mmol/L (6-16); Blood Urea Nitrogen 34 mg/dL (8-24); Bun/Creatinine Ratio 21.2 (12.0-20.0); CO2, Blood 21 mmol/L (21-32); Calcium, Blood 8.2 mg/dL (8.5-10.1); Chloride, Blood 118 mmol/L (98-108); Glomerular Filtration Rate 36 (60-); Glucose, Blood 76 mg/dL (70-99); Magnesium, Blood 1.6 mg/dL (1.6-2.4); Phosphorus, Blood 3.1 mg/dL (2.5-4.9); Potassium, Blood 4.4 mmol/L (3.5-5.5); Sodium, Blood 145 mmol/L (136-145)
[2018-11-19 06:58] LABS: Source, Urine Catheter
[2018-11-19 07:05] LABS: Bilirubin, Urine Neg (Neg); Blood, Urine 4+ (Neg); Glucose Qualitative, Urine Neg (Neg); Ketones, Urine Neg (Neg); Leukocyte Esterase, Urine 2+ (Neg); Nitrite, Urine Neg (Neg); Protein, Urine 2+ (Neg); Specific Gravity, Urine 1.015 (1.003-1.022); Urobilinogen, Urine NORM (Normal)
[2018-11-19 07:24] LABS: Appearance, Urine Clear (Clear); Color, Urine Yellow (P-Yellow)
[2018-11-19 07:26] LABS: Squamous Epithelial Cells Mod /hpf (Few)
[2018-11-19 07:28] LABS: Bacteria Many /hpf
--- NOTE | 2018-11-19 07:39 | NUR ---
Rn summary: Patient is alert and oriented. She is very lonely and wants to talk for extended periods of time. Pt was medicated x3 for chronic pain with dilaudid 2mg IV. Pt did receive zofran x2 and 12.5 of phenergan x1. Pt did rest for 3 hours this am. Urine sent for culture from nephrostomy bag. Pt to have CT w/o contrast this am. Pt has been up in w/c and out to smoke x2 this shift. Pt has mediport to Left chest wall that draws and flushes well. Call light in reach. Report to day shift RN,
--- NOTE | 2018-11-19 16:19 | NUR ---
SHIFT SUMMARY PT A&Ox4. ANXIOUS BUT COOPERATIVE WITH CARE. PT SITTING ON SIDE OF BED FOR MAJORITY OF SHIFT, ENCOURAGED PT TO ELEVATE BLE TO REDUCE EDEMA. UP TO WC WITH SBA. IND WHILE IN WC. PT DENIES SOB DURING SHIFT.PT REPORTS CHRONIC LOWER BACK AND "ALL OVER" PAIN, 8-10/10, MEDICATED PER EMAR. PT REPORTS NAUSEA, MEDICATED X1 WITH PHENERGEN. PT RECEIVING PO AND IV ANTIBIOTICS. VAGINAL DISCHARGE SULTURE ORDERED, SPECIMEN COLLECTED AND SENT TO LAB. ELEVATED HR AND RESP, WILL CONTINUE TO MONITOR. OTHER VSS. NO OTHER ACUTE CHAGNES NOTED DURING SHIFT. WILL CONTINUE TO MONITOR UNTIL REPORT GIVEN TO ONCOMING RN.
--- NOTE | 2018-11-20 03:40 | NUR ---
SHIFT SUMMARY THE PT ADMITTED FOR ACUTE RENAL FAILURE. FULL CODE. REGULAR DIET. MEDIPORT ACCESSED AND USED FOR MEDS. ILIOSTOMY THAT PT MANAGES WITH ASSIST WHEN NEEDED. 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 BLOOD CLOT TO L LEG ON ELEQUIS, PT REFUSES TO TAKE EVENING DOSE. SMOKER. TAKES MEDICATIONS WHOLE. PT IS INDEPENDENT TO SBA TO W/C. PT IS W/C BOUND AT BASELINE DUE TO FUNCTIONAL PARALYSIS TO BLLE. THE PT PRESENTED TO THE ED WITH C/O ABD PAIN, NAUSEA, VOMITING, AND DIARRHEA. THE PT HAS A PAST HX OF CERVICAL CANCER WITH RADIATION TREATMENT AND SUBSEQUENT ILIOSTOMY PLACEMENT. THE PT IS NOTED TO HAVE PERSISTENT NARCOTIC SEEKING BEHAVIORS. THIS NURSE ENTERED PTS ROOM TO ADMINISTER PAIN MEDICATION AND REJI MEDICATIONS. THE PT THEN REFUSED TO TAKE SCHEDULED XANAX AFTER MEDICATION OPENED AND REMOVED FROM PACKAGE AND IN MEDICATION CUP IN PTS HAND. THE PT THEN STATED THAT SHE WOULD JUST STICK THE MEDICATION IN A DRAWER BECAUSE SHE DID NOT WANT TO TAKE IT UNTIL 2300 OR LATER BECAUSE SHE WOULD NOT SLEEP ALL NIGHT IF SHE TOOK IT TO EARLY. THIS NURSE ADVISED PT THAT SHE WOULD EITHER NEED TO TAKE IT WHILE THIS NURSE WAS PRESENT OR THE MEDICATION WOULD NEED TO BE WASTED AND BROUGHT BACK LATER. THIS NURSE ASKED PT TO GIVE MEDICATION BACK IN MED CUP AND PT DID. PT THEN BEGAN TO ASK THIS NURSE TO FILL WATER BOTTLE WITH WARM WATER STATING, YOU HAVE TO DO IT IN THE BATHROOM. THE PT CONTINUED TO ATTEMPT TO ASK FOR THINGS THAT WOULD REQUIRE THIS NURSE TO EXIT THE ROOM INDICATING DIVERTING BEHAVIORS TO ATTEMPT TO CONCEAL THE XANAX. THIS NURSE CALL TO RAT POISONER TO COME ASSIST PT WITH NEEDS AND THIS NURSE EXITED TO ROOM TO WASTE XANAX WITH CHARGE NURSE LINWOOD. THE PT CONTINUES TO ASK FOR FULL DOSE OF IV PAIN MEDICATIONS EVERY 2 HOURS. THE PT ALWAYS STATES PAIN LEVEL IS A 10 EVEN UPON WAKING AFTER SLEEP. THE PT STATES SHE WANTS WOKE UP TO TAKE PAIN MEDS EVERY 2 HOURS, THIS NURSE ADVISED PT THAT IF PT IS SLEEPING THEN PAIN IS CONTROLLED ENOUGH TO REST AND THIS NURSE WOULD NOT WAKE PT TO GIVE PAIN MEDS. PT APPEARS TO BE SLEEPING AT THIS TIME WITH NO APPARENT SIGNS OF ACUTE DISTRESS. ABLE TO MAKE NEEDS KNOWN AND CALL LIGHT IN REACH.
[2018-11-20 05:46] LABS: Hematocrit 29.1 % (33.0-51.0); Hemoglobin 9.1 g/dL (11.5-16.0)
[2018-11-20 06:03] LABS: Albumin, Blood 2.6 g/dL (3.4-5.0); Anion Gap 5 mmol/L (6-16); Blood Urea Nitrogen 31 mg/dL (8-24); Bun/Creatinine Ratio 22.6 (12.0-20.0); CO2, Blood 21 mmol/L (21-32); Calcium, Blood 7.8 mg/dL (8.5-10.1); Chloride, Blood 116 mmol/L (98-108); Creatinine, Blood 1.37 mg/dL (0.40-1.00); Glomerular Filtration Rate 43 (60-); Glucose, Blood 87 mg/dL (70-99); Magnesium, Blood 1.2 mg/dL (1.6-2.4); Phosphorus, Blood 3.2 mg/dL (2.5-4.9); Potassium, Blood 4.3 mmol/L (3.5-5.5); Sodium, Blood 142 mmol/L (136-145)
--- NOTE | 2018-11-20 18:30 | NUR ---
PATIENT IS ALERT AND ORIENTED AND COOPERATIVE WITH CARE. SHE CALLS APPROPRIATELY. PATIENT COMPLAINED OF PAIN AND NAUSEA THROGUHOUT THE DAY, TREATED PER EMAR. PATIENT INDEPENDENT IN WHEELCHAIR. WILL CONTINUE TO MONITOR
--- NOTE | 2018-11-21 04:21 | NUR ---
SHIFT SUMMARY NO APPARENT ACUTE CHANGES NOTED. PT CONTINUES TO C/O NAUSEA. HOWEVER, PT HAS EATEN SNACKS THROUGHOUT THE NIGHT QUITE FREQUENTLY. MEDICATED PER EMAR. PT CONTINUES TO DEMONSTRATE DRUG DIVERSION BEHAVIORS BY KEEP MEDS IN HAND AND WATCHED PT ATTEMPT TO DROP IN POCKET. PT STATED "IF I'M NOT GOING TO GET IV PAIN MEDS THEN I JUST WANT TO GO HOME." THE PT ALSO IS COMPLAINING AT THIS TIME ABOUT NOT BEING ON HIGH ENOUGH DOSES OF NARCOTICS. THE PT CONTINUES TO ASK FOR ANY MEDICATIONS THAT SHE CAN GET OFTEN POSSIBLE. THIS NURSE IN PTS ROOM EVERY 45 MINUTES TO AN HOUR THE ENTIRE NIGHT. IS AWAKE AT THIS TIME AND REQUESTING MORE MEDICATIONS. ABLE TO MAKE NEEDS KNOWN AND CALL LIGHT IN REACH.
[2018-11-21 05:45] LABS: Hematocrit 29.4 % (33.0-51.0); Hemoglobin 9.2 g/dL (11.5-16.0)
[2018-11-21 06:02] LABS: Albumin, Blood 2.7 g/dL (3.4-5.0); Anion Gap 7 mmol/L (6-16); Blood Urea Nitrogen 34 mg/dL (8-24); Bun/Creatinine Ratio 18.5 (12.0-20.0); CO2, Blood 22 mmol/L (21-32); Calcium, Blood 8.2 mg/dL (8.5-10.1); Chloride, Blood 115 mmol/L (98-108); Creatinine, Blood 1.84 mg/dL (0.40-1.00); Glomerular Filtration Rate 31 (60-); Glucose, Blood 90 mg/dL (70-99); Magnesium, Blood 1.7 mg/dL (1.6-2.4); Phosphorus, Blood 3.2 mg/dL (2.5-4.9); Potassium, Blood 4.2 mmol/L (3.5-5.5); Sodium, Blood 144 mmol/L (136-145)
--- NOTE | 2018-11-21 17:32 | NUR ---
SHIFT SUMMARY PATIENT A&O X4, WC BOUND. PATIENT TRANSFERS SELF FROM BED TO . C/O PAIN TO RIGHT SIDE, BACK, NECK, AND LEGS THROUGHOUT THE SHIFT. RN MEDICATED PER E AUG. MEDICATED X 2 WITH ZOFRAN AND PHENERGAN FOR NAUSEA. DENIES ANY SOB. PATIENT HAS RIGHT NEPHROSTOMY AND ILEOSTOMY THAT SHE IS MANAGING HERSELF. IS ABLE TO REPOSITION SELF IN THE BED. PATIENT DOES APPEAR ANXIOUS AT TIMES. SAYS SHE WANTS TO GO HOME. NO ACUTE CHANGES THIS SHIFT. RN WILL CONTINUE TO MONITOR.
--- NOTE | 2018-11-22 04:51 | NUR ---
PROJECT SPECIALIST SUMMARY NO ACUTE CHANGES THIS SHIFT. PT AAOX4 AND INDEPENDENT TO WHEELCHAIR. PT GOES OUTSIDE FREQUENTLY. TREATED FOR PAIN X2 PER EMAR. PT APPEARS TO BE IN NO DISTRESS BUT ALWAYS STATES THAT PAIN IS "GREATER THAN 10". PT MANAGING ILEOSTOMY HERSELF. PT HAD ARGUMENT WITH HER DAUGHTER AT BEGINNING OF SHIFT AND REFUSED TO GET VITALS TAKEN AT THAT TIME. WAS AGREEABLE TO MORNING VITALS WHICH WERE STABLE. WILL CONTINUE TO MONITOR.
[2018-11-22 06:37] LABS: Hematocrit 31.3 % (33.0-51.0); Hemoglobin 9.8 g/dL (11.5-16.0)
[2018-11-22 06:57] LABS: Albumin, Blood 2.9 g/dL (3.4-5.0); Anion Gap 8 mmol/L (6-16); Blood Urea Nitrogen 38 mg/dL (8-24); Bun/Creatinine Ratio 20.3 (12.0-20.0); CO2, Blood 22 mmol/L (21-32); Calcium, Blood 8.2 mg/dL (8.5-10.1); Chloride, Blood 112 mmol/L (98-108); Creatinine, Blood 1.87 mg/dL (0.40-1.00); Glomerular Filtration Rate 30 (60-); Glucose, Blood 110 mg/dL (70-99); Magnesium, Blood 1.5 mg/dL (1.6-2.4); Phosphorus, Blood 3.4 mg/dL (2.5-4.9); Potassium, Blood 4.2 mmol/L (3.5-5.5); Sodium, Blood 142 mmol/L (136-145)
--- NOTE | 2018-11-22 17:28 | NUR ---
shift summary patient pleasant, no acute concerns with her today. she is concerned about her foot and awaiting to know if dr. cortez has wanted to put her on another dose of lasix. patient has no acute concerns at this time.
--- NOTE | 2018-11-22 21:20 | NUR ---
PT MEDIPORT NEEDLE DUE TO BE CHANGED TODAY. OFFERED TO CHANGE NEEDLE AND DRESSING, HOWEVER PT REFUSED. PT STATED THAT USUALLY WE ARE UNABLE TO DRAW BLOOD FROM HER PORT BUT IT CURRENTLY IS DRAWING SO SHE WOULD LIKE TO LEAVE IT BE FOR NOW. PT IS A PROBABLE DISCHARGE TOMORROW.
--- NOTE | 2018-11-23 05:48 | NUR ---
CLINICAL RESEARCH NURSE SUMMARY NO ACUTE CHANGES. PT AAOX4, INDEPENDENT IN WC. PT RESTING QUIETLY THROUGH THE NIGHT AND EATING FOOD AND DRINKING SODAS WITH NO VOMITING BUT CONTINUES TO REQUEST ROUND THE CLOCK PAIN AND NAUSEA MEDICATIONS. PT MANAGING ILEOSTOMY AND NEPHROSTOMY AND REPORTS OUTPUT TO STAFF. VSS, WILL CONTINUE TO MONITOR.
--- NOTE | 2018-11-23 15:37 | NUR ---
DISCHARGE SUMMARY PATIENT IS PLEASANT, NO ACUTE CONCERNS. MEDIPORT WAS DEACCESSED WITH HEPARIN FLUSH AND PATIENT WAS GIVEN PAIN MEDS REQUESTED PRIOR TO DISCHARGE. SHE WHEELED OUT WITH HER DAUGHTER AFTER SIGNING HER PAPERS.
== END 2018-11-23 14:20 | disposition home or self-care (01) | DRG 683 ==
LOC: ER 10:40 → MEDS 10:41 → ENPENDDIS 11-23 12:06 → MEDS 11-23 14:20
PROVIDERS: Emergency Medicine; Internal Medicine Nephrology; ADMIT Internal Medicine
DX: N17.9 Acute kidney failure, unspecified (principal); F11.20 Opioid dependence, uncomplicated; R65.10 Systemic inflammatory response syndrome (SIRS) of non-infectious origin without acute organ dysfunction; N82.4 Other female intestinal-genital tract fistulae; N82.0 Vesicovaginal fistula; E87.2 Acidosis; K94.19 Other complications of enterostomy; N39.0 Urinary tract infection, site not specified; Z92.3 Personal history of irradiation; Z90.5 Acquired absence of kidney; F41.1 Generalized anxiety disorder; F17.210 Nicotine dependence, cigarettes, uncomplicated; N18.3 Chronic kidney disease, stage 3 (moderate); G89.4 Chronic pain syndrome; K52.9 Noninfective gastroenteritis and colitis, unspecified; E87.70 Fluid overload, unspecified; D63.1 Anemia in chronic kidney disease; E83.42 Hypomagnesemia; Z85.41 Personal history of malignant neoplasm of cervix uteri
CPT/HCPCS: 36415; 71045; 71250; 74150; 74176; 80048; 80053; 80069; 81001; 83605; 83690; 83735; 85014; 85018; 85025; 85610; 87040; 87070; 87077; 87086; 87186; 87205; 87507; 93005; 93010; 94760; 96361-59; 96374-59; 96375-59; 96376-59; 99285-25; J0696; J0881; J1170; J1642; J1940; J2405; J2550; J3475; J7030; J7050; J7120; J7131

== ENCOUNTER → 2018-12-26 | Outpatient (CLI) | payer OTHER ==
[~2018-12-26] MED LIST changes: +CYAN500 PO; +PROBIOTIC GOLD1 EACH PO; +Vitamin D2000 UNIT PO
[2018-12-26 18:46] LABS: Bilirubin, Urine Neg (Neg); Blood, Urine 4+ (Neg); Glucose Qualitative, Urine Neg (Neg); Ketones, Urine Neg (Neg); Leukocyte Esterase, Urine 3+ (Neg); Nitrite, Urine Pos (Neg); Protein, Urine 3+ (Neg); Urobilinogen, Urine NORM (Normal)
[2018-12-26 19:26] LABS: Appearance, Urine Cloudy (Clear); Color, Urine Yellow (P-Yellow)
[2018-12-26 19:28] LABS: Bacteria Many /hpf; Granular Casts 0-2 /lpf (0); Squamous Epithelial Cells Few /hpf (Few); White Blood Cells, Urine TNTC /hpf (0-5)
== END | disposition home or self-care (01) ==
LOC: LAB 18:07 → LAB SHORT 18:07
PROVIDERS: Internal Medicine Hematology & Oncology
DX: R80.9 Proteinuria, unspecified (principal); R32 Unspecified urinary incontinence
CPT/HCPCS: 81001; 87077; 87086; 87186

== ENCOUNTER → 2020-05-17 | Outpatient (CLI) | payer OTHER ==
[~2020-05-17] MED LIST changes: +Acidophilus1 EAC1 PO; +CALC.25 PO; +ELIQUIS2.5 MG PO; +METO25ER PO; +NEOMYC-POLYM-DEX5 ML RIGHTEYE; +ROXICODONE15 MG PO; -Roxicodone15 MG PO; +SPIR25 PO
[2020-05-17 17:49] LABS: Albumin, Blood 3.4 g/dL (3.4-5.0); Anion Gap 8 mmol/L (6-16); Blood Urea Nitrogen 18 mg/dL (8-24); CO2, Blood 20 mmol/L (21-32); Calcium, Blood 8.8 mg/dL (8.5-10.1); Chloride, Blood 107 mmol/L (98-108); Creatinine, Blood 1.29 mg/dL (0.40-1.00); Glomerular Filtration Rate 46 (60-); Glucose, Blood 86 mg/dL (70-99); Magnesium, Blood 1.6 mg/dL (1.6-2.4); Phosphorus, Blood 3.6 mg/dL (2.5-4.9); Potassium, Blood 4.7 mmol/L (3.5-5.5); Sodium, Blood 135 mmol/L (136-145)
== END | disposition home or self-care (01) ==
LOC: LAB 17:11
PROVIDERS: Internal Medicine Nephrology
DX: N18.2 Chronic kidney disease, stage 2 (mild) (principal); D63.1 Anemia in chronic kidney disease
CPT/HCPCS: 80069; 83735; 85018

== ENCOUNTER 2020-07-02 20:06 | Inpatient (IN) | payer OTHER ==
[~2020-07-02] VITALS: Ht 167.6 cm; Wt 65.3 kg
[~2020-07-02 20:06] MED LIST changes: -ALBU90OI INH; -Acidophilus1 EAC1 PO; -CALC.25 PO; -CYAN500 PO; -ELIQUIS2.5 MG PO; -METO25ER PO; -NEOMYC-POLYM-DEX5 ML RIGHTEYE; -ROXICODONE15 MG PO; -SPIR25 PO; -Vitamin D2000 UNIT PO
[2020-07-02 22:13] LABS: BASOPHILS ABSOLUTE AUTO 0.05 K/mm3 (0.00-0.23); BASOPHILS PERCENT AUTO 1 % (0-2); EOSINOPHILS ABSOLUTE AUTO 0.02 K/mm3 (0.00-0.68); EOSINOPHILS PERCENT AUTO 0 % (0-6); Hematocrit 52.4 % (33.0-51.0); Hemoglobin 16.9 g/dL (11.5-16.0); IMMATURE GRAN ABSOLUTE AUTO 0.02 K/mm3 (0.00-0.10); IMMATURE GRAN PERCENT AUTO 0 % (0-1); LYMPHOCYTES ABSOLUTE AUTO 0.73 K/mm3 (0.84-5.20); LYMPHOCYTES PERCENT AUTO 10 % (21-46); MONOCYTES ABSOLUTE AUTO 0.36 K/mm3 (0.16-1.47); MONOCYTES PERCENT AUTO 5 % (4-13); Mean Corpuscular HGB 27.8 pg (26.0-34.0); Mean Corpuscular HGB Conc 32.3 g/dL (31.5-36.5); Mean Corpuscular Volume 86 fL (80-100); Mean Platelet Volume 8.9 fL (9.1-12.4); NEUTROPHILS ABSOLUTE AUTO 6.37 K/mm3 (1.96-9.15); NEUTROPHILS PERCENT AUTO 84 % (41-73); Platelet Count 338 K/mm3 (150-400); RDW Coefficient Variation 13.9 % (11.7-14.2); RDW Standard Deviation 43.7 fL (35.1-46.3); Red Blood Cell Count 6.09 M/mm3 (3.80-5.20); White Blood Cell Count 7.55 K/mm3 (4.00-11.30)
[2020-07-02] MEDS ORDERED: ELIQUIS2.5 MG PO (22:20)
[2020-07-02 22:29] LABS: Albumin, Blood 3.7 g/dL (3.4-5.0); Albumin/Globulin Ratio 0.8 (0.8-1.8); Bilirubin, Total 0.6 mg/dL (0.1-1.0); Creatinine, Blood 1.43 mg/dL (0.40-1.00); Globulin, Blood 4.8 g/dL (2.2-4.0); Total Protein, Blood 8.5 g/dL (6.4-8.2)
--- NOTE | 2020-07-03 03:39 | NUR ---
PT ADMITTED TO ROOM 228 AT ABOUT 0130. A/O X4. BEDBOUND AT BASELINE. PT C/O NAUSEA, NOT HAVING EMESIS AT THIS TIME. ILEOSTOMY AND UROSOTOMY IN PLACE, BOTH FUNCTIONING WELL. PT REP COLORECTAL-VAGINAL FISTULA AND IS HAVING FOUL ODOR DRAINAGE ON DONATO PAD. FOAM PAD PLACED ON BED PER PT REQUEST. PT C/O PAIN AND WAS MED WITH 1MG IV DILAUDED. PT STATED THAT DILAUDED ONLY WORKS IF "PUSHED FAST" AND THAT SHE PREFERS IT PUSHED QUICKLY SO SHE CAN FEEL IT. PT EDUCATED THAT SHE STILL RECEIVES THE SAME MED AND DOSE WHEN NOT GIVEN QUICKLY. PT HAS PERSONAL BELONGINGS IN ROOM. CALL LIGHT IN REACH.
[2020-07-03 04:03] LABS: BASOPHILS ABSOLUTE AUTO 0.04 K/mm3 (0.00-0.23); BASOPHILS PERCENT AUTO 1 % (0-2); EOSINOPHILS ABSOLUTE AUTO 0.04 K/mm3 (0.00-0.68); EOSINOPHILS PERCENT AUTO 1 % (0-6); Hematocrit 46.5 % (33.0-51.0); Hemoglobin 15.2 g/dL (11.5-16.0); IMMATURE GRAN ABSOLUTE AUTO 0.06 K/mm3 (0.00-0.10); IMMATURE GRAN PERCENT AUTO 2 % (0-1); LYMPHOCYTES ABSOLUTE AUTO 0.51 K/mm3 (0.84-5.20); LYMPHOCYTES PERCENT AUTO 16 % (21-46); MONOCYTES ABSOLUTE AUTO 0.35 K/mm3 (0.16-1.47); MONOCYTES PERCENT AUTO 11 % (4-13); Mean Corpuscular HGB 27.5 pg (26.0-34.0); Mean Corpuscular HGB Conc 32.7 g/dL (31.5-36.5); Mean Corpuscular Volume 84 fL (80-100); NEUTROPHILS ABSOLUTE AUTO 2.11 K/mm3 (1.96-9.15); NEUTROPHILS PERCENT AUTO 68 % (41-73); RDW Coefficient Variation 13.8 % (11.7-14.2); RDW Standard Deviation 42.5 fL (35.1-46.3); Red Blood Cell Count 5.52 M/mm3 (3.80-5.20); White Blood Cell Count 3.11 K/mm3 (4.00-11.30)
[2020-07-03 04:04] LABS: Mean Platelet Volume 9.4 fL (9.1-12.4); Platelet Count 172 K/mm3 (150-400)
[2020-07-03 04:06] LABS: Bun/Creatinine Ratio 23.3 (12.0-20.0); Calcium, Blood 8.4 mg/dL (8.5-10.1); Creatinine, Blood 1.5 mg/dL (0.40-1.00); Potassium, Blood 4.3 mmol/L (3.5-5.5)
--- NOTE | 2020-07-03 04:53 | NUR ---
SHIFT SUMMARY NO ACUTE CHANGES SINCE PREVIOUS RN NOTE. LACTIC THIS AM WAS 3.0, DOWN FROM 4.2. PHYSICIAN NOTIFIED, NO NEW ORDERS. IV FLUIDS INFUSING INTO MEDIPORT WHICH WAS ACCESSED IN THE ED. PT RESTING IN BED, DROWSY. CALL LIGHT IN REACH.
--- NOTE | 2020-07-03 15:53 | NUR ---
SHIFT SUMMARY PT A&OX4, VSS, WHEELCHAIR AT BASELINE, REPOSITIONS WELL IN BED. UROSTOMY WITH URINE OUT. ILEOSTOMY WITH LARGE LIQUID BROWN OUTPUT. PAIN MANAGED WITH 1 MG DILAUDID Q2P. BIOX ON. JOIE SMALL AMTS OF CLEAR LIQUID DIET; NAUSEA TREATED WITH PHENERGAN 25 MG Q4P. WILL REPORT TO ONCOMING RN.
--- NOTE | 2020-07-04 05:50 | NUR ---
SHIFT SUMMARY PT IS A/O X4. WHEELCHAIR BOUND AT BASELINE PER PT. REPOSITIONS SELF WELL IN BED AND ASSISTED PRN. PAIN MANAGED PER ORDERS OVERNIGHT. PT REPORTS 10/10 PAIN BEFORE MEDS BUT REPORTS HER BASELINE PAIN IS 8/10 AT HOME. PT HAS BEEN DROWSY AFTER PAIN MEDS. BIOX IN PLACE AT BEDSIDE. ILEOSTOMY PUTTING OUT BROWN/GREEN LIQUID STOOL. PT C/O NAUSEA AND REQUESTS PHENERGAN. DISCUSSED BACKING OFF ON PO FLUIDS HOWEVER PT DOES NOT FEEL THIS IS NECESSARY AND CONTINUES TO REQUEST SODA. PT RESTING IN BED AT THIS TIME WITH CALL LIGHT IN REACH.
[2020-07-04 09:57] LABS: Source, Urine Urostomy Bag
[2020-07-04 10:05] LABS: Appearance, Urine Hazy (Clear); Bilirubin, Urine Neg (Neg); Blood, Urine 4+ (Neg); Color, Urine Yellow (P-Yellow); Glucose Qualitative, Urine Neg (Neg); Ketones, Urine Neg (Neg); Leukocyte Esterase, Urine 2+ (Neg); Nitrite, Urine Pos (Neg); Protein, Urine 3+ (Neg); Specific Gravity, Urine 1.025 (1.003-1.022); Urobilinogen, Urine 1+ (Normal)
[2020-07-04 10:23] LABS: Red Blood Cells, Urine 25-50 /hpf (0-2)
[2020-07-04 10:24] LABS: Bacteria Many /hpf; Squamous Epithelial Cells Mod /hpf (Few); WBC Cast 0-2 /lpf (0)
[2020-07-04] MEDS ORDERED: CEPH500 PO (10:55)
[2020-07-04] MEDS ORDERED: METO25ER PO (11:33)
--- NOTE | 2020-07-04 15:17 | NUR ---
DISCHARGE SUMMARY PT A&OX4, VSS, LEFT FLOOR VIA WC TO GO HOME WITH DAUGHTER, WITH ALL PERSONAL POSSESSIONS INCLUDING DC PACKET; SCRIPTS CALLED INTO [facility]. DC INSTRUCTIONS PROVIDED; PT REP UNDERSTANDING THOSE INSTRUCTIONS INCLUDING FU WITH PCP.
== END 2020-07-04 14:26 | disposition home or self-care (01) | DRG 389 ==
LOC: ER 20:06 → SURS 20:07
PROVIDERS: Emergency Medicine; Internal Medicine; Nurse Practitioner Acute Care; ADMIT Internal Medicine
DX: K56.609 Unspecified intestinal obstruction, unspecified as to partial versus complete obstruction (principal); N39.0 Urinary tract infection, site not specified; G82.20 Paraplegia, unspecified; E87.2 Acidosis; K56.7 Ileus, unspecified; N18.30 Chronic kidney disease, stage 3 unspecified; Z93.2 Ileostomy status; F41.1 Generalized anxiety disorder; E86.0 Dehydration; R00.0 Tachycardia, unspecified; F17.210 Nicotine dependence, cigarettes, uncomplicated; Z86.718 Personal history of other venous thrombosis and embolism; Z86.14 Personal history of Methicillin resistant Staphylococcus aureus infection; Z92.21 Personal history of antineoplastic chemotherapy; Z92.3 Personal history of irradiation; Z85.41 Personal history of malignant neoplasm of cervix uteri
CPT/HCPCS: 36415; 74022; 80048; 80053; 81001; 83605; 85025; 87040; 87077; 87086; 87186; 93005; 93010; 94760; 96374; 96375; 96376; 99285-25; A9270; G0378; J1170; J1642; J2060; J2405; J2550; J7030

== ENCOUNTER 2020-07-29 08:23 | Inpatient (IN) | payer OTHER ==
[~2020-07-29] VITALS: Ht 165.1 cm; Wt 71.3 kg
[~2020-07-29 08:23] MED LIST changes: +ELIQUIS2.5 MG PO; +METO25ER PO
[2020-07-29 09:50] LABS: Source, Urine Urostomy Bag
[2020-07-29 09:55] LABS: BASOPHILS ABSOLUTE AUTO 0.03 K/mm3 (0.00-0.23); BASOPHILS PERCENT AUTO 1 % (0-2); EOSINOPHILS ABSOLUTE AUTO 0.01 K/mm3 (0.00-0.68); EOSINOPHILS PERCENT AUTO 0 % (0-6); Hematocrit 47.9 % (33.0-51.0); Hemoglobin 16.1 g/dL (11.5-16.0); IMMATURE GRAN ABSOLUTE AUTO 0.02 K/mm3 (0.00-0.10); IMMATURE GRAN PERCENT AUTO 0 % (0-1); LYMPHOCYTES ABSOLUTE AUTO 0.96 K/mm3 (0.84-5.20); LYMPHOCYTES PERCENT AUTO 18 % (21-46); MONOCYTES ABSOLUTE AUTO 0.63 K/mm3 (0.16-1.47); MONOCYTES PERCENT AUTO 12 % (4-13); Mean Corpuscular HGB 27.5 pg (26.0-34.0); Mean Corpuscular HGB Conc 33.6 g/dL (31.5-36.5); Mean Corpuscular Volume 82 fL (80-100); Mean Platelet Volume 8.9 fL (9.1-12.4); NEUTROPHILS PERCENT AUTO 70 % (41-73); Platelet Count 317 K/mm3 (150-400); RDW Coefficient Variation 14.1 % (11.7-14.2); RDW Standard Deviation 42.1 fL (35.1-46.3); Red Blood Cell Count 5.86 M/mm3 (3.80-5.20); White Blood Cell Count 5.45 K/mm3 (4.00-11.30)
[2020-07-29 10:08] LABS: Appearance, Urine Cloudy (Clear); Blood, Urine 5+ (Neg); Color, Urine Yellow (P-Yellow); Glucose Qualitative, Urine Neg (Neg); Ketones, Urine 1+ (Neg); Leukocyte Esterase, Urine 3+ (Neg); Nitrite, Urine Neg (Neg); Protein, Urine 3+ (Neg); Specific Gravity, Urine 1.025 (1.003-1.022); Urobilinogen, Urine 1+ (Normal)
[2020-07-29 10:19] LABS: Bilirubin, Urine 1+ (Neg)
[2020-07-29 10:20] LABS: Albumin, Blood 3.1 g/dL (3.4-5.0); Albumin/Globulin Ratio 0.7 (0.8-1.8); Bilirubin, Total 0.5 mg/dL (0.1-1.0); Bun/Creatinine Ratio 12.6 (12.0-20.0); Calcium, Blood 9.8 mg/dL (8.5-10.1); Creatinine, Blood 2.85 mg/dL (0.40-1.00); Globulin, Blood 4.6 g/dL (2.2-4.0); Potassium, Blood 3.7 mmol/L (3.5-5.5); Total Protein, Blood 7.7 g/dL (6.4-8.2)
[2020-07-29 10:21] LABS: Bacteria Many /hpf; White Blood Cells, Urine 25-50 /hpf (0-5)
[2020-07-29 10:22] LABS: Squamous Epithelial Cells Few /hpf (Few)
[2020-07-29 12:13] LABS: Creatine Kinase MB 2.2 ng/mL (0.0-3.6)
[2020-07-29] MEDS ORDERED: ALPR1 PO (13:24)
[2020-07-29] MEDS ORDERED: ALBU90OI INH (13:25)
[2020-07-29] MEDS ORDERED: Vitamin D2000 UNIT PO (13:25)
[2020-07-29] MEDS ORDERED: PROM25 PO (13:25)
[2020-07-29] MEDS ORDERED: CYAN500 PO (13:25)
[2020-07-29] MEDS ORDERED: ELIQUIS2.5 MG PO (13:26)
[2020-07-29] MEDS ORDERED: HYDMOR8 PO (13:26)
[2020-07-29] MEDS ORDERED: ROXICODONE15 MG PO (13:27)
[2020-07-29] MEDS ORDERED: CALC.25 PO (13:28)
[2020-07-29] MEDS ORDERED: Acidophilus1 EAC1 PO (13:28)
[2020-07-29] MEDS ORDERED: NEOMYC-POLYM-DEX5 ML RIGHTEYE (13:30)
[2020-07-29 14:01] LABS: Base Excess Venous -15.3 mmol/L; Bicarbonate Venous 14.2 mmol/L (24.0-30.0); PCO2 Venous 26.9 mmHg (38-42); PO2 Venous 165 mmHg (38-42)
[2020-07-29 14:02] LABS: pH Blood Venous 7.25 (7.34-7.37)
[2020-07-29 14:08] LABS: Hematocrit 45.2 % (33.0-51.0); Hemoglobin 14.7 g/dL (11.5-16.0)
[2020-07-29 17:07] LABS: Hematocrit 40.9 % (33.0-51.0)
--- NOTE | 2020-07-29 17:19 | NUR ---
ARRIVAL TO ICU PT ARRIVES FROM ER AT 1445. ADMIT DX SBO, HX OF SAME. PT ARRIVES ON GURNEY. A&OX 3. IRRITABLE, IMPULSIVE. FRUSTRATED AT QUESTIONS AND INSTRUCTIONS. PT C/O ABD PAIN, N/V X 12 HOURS. PT HAS BLACK EMESIS ON LIPS. COOL, EXTREMITIES ARE MOTTLED AND PURPLE. DAUGHTER STATES THIS IS NORMAL. PT STATES PAIN 10/10. REQUESTING DILAUDID AND PHENERGAN. CHRONIC NARCOTIC USE AT HOME. ABD ROUND, SOFT, TENDER, BT HYPOACTIVE. ILEOSTOMY TO LLQ, LIQUID BROWN STOOL OUT. NEPHROSTOMY TO RIGHT FLANK, CLEAR YELLOW URINE IN DRAINAGE BAG. DAUGHTER STATES SHE CHANGED DRESSING IN ER. LEGS FLACCID, PT HAS SMALL GROSS MOTOR MOVEMENT ONLY, STATES THIS IS D/T RADIATION FROM CERVICAL CA. NOT CURRENTLY RECEIVING TX. PT HYPOTENSIVE ON ARRIVAL. DIFFICULTIES c PICC PLACEMENT, ESTABLISHED TO TEENA, DRESSING C/D/I. BP BY DOPPLER, 80'S SYSTOLIC. ELLI AWARE. ADDITIONAL 1L OF NS INFUSING. HR 120'S ON ARRIVAL, CURRENTLY 110'S. WILL CONTINUE TO MONITOR UNTIL REPORT TO ONCOMING NURSE.
--- NOTE | 2020-07-29 18:08 | NUR ---
Provided supportive visit to Lorrie's eldest dtr at bedside. She appears physically and emotionally exhausted. She expresses fear for her mom's future. Pt has two dtrs--the youngest of which lives with pt to help out. Strongly encouraged self-care, affirmed excellent nursing attention/skill, and offered prayer. Security Strategist services will remain available.
--- NOTE | 2020-07-29 21:05 | NUR ---
Care Assumed 1900 Pt is A/O to location, date/time, and following directions. Irritable during care and frustrated when asking questions. Pt states pain 9 to 10/10 in abd, back, and neck. When asking for further details about pain patient refusing to answer. Pt had large unmeasured emesis, brown/dark red liquid. Treated per emar with Phenergan and Fentanyl. Asked patient if she would like NG tube placed, educated on importance of NG tube, and patient refusing. Ileostomy to RLQ, 200 mls liquid brown stool out. Nephrostomy to right flank, yellow urine in drainage bag. PICC to MARTINEZ. LR @ 200 ML/HR AND PROTONIX @ 10 ML/HR. Patients legs are flaccid, has small gross motor movement. Extrems cool to touch. See full shift assessment. VSS. NSR. Sinus tach.
--- NOTE | 2020-07-29 21:49 | NUR ---
Update Pt continues to complain of nausea and states "I'm about to vomit." No emesis thus far. Pt recieved PRN Zofran and asking for Ativan. Spoke to patients daughter, Jd Wong. Daughter states pt is refusing NG tube due to "ending up in ICU in 2016 after having NG tube placed." Spoke to daughter about the benefits of having an NG tube but understand patients fear.
[2020-07-29 22:08] LABS: Hematocrit 37.8 % (33.0-51.0)
--- NOTE | 2020-07-30 00:17 | NUR ---
Update No emesis since earlier assessment. Pt continues to report having nausea, treated with PRN Promethazine with good effect. Pt refusing certain care but agreeable with other. Provided oral care and neck/back massage for pain. Patient continues to refuse to be turned. States she sleeps on her right side and that is most comfortable. Call light within reach. Patient would like rooms door closed. Pt also complains of pain 10/10, treated with PRN Fentanyl with minimal effect.
--- NOTE | 2020-07-30 01:34 | NUR ---
Ostomy Care Pt's ostomy bag emptied ( 300 mls of dark brown liquid stool). Ostomy bag rinsed with warm water using pericare bottle per patient instructions. Pt easily irritable when directions not followed quickly/appropriately per her request when providing care. Asking for Ativan and pain medication frequently. States having nausea, mouth rinsed with warm water. Attempted to place SCD's, pt refused. Call light within reach.
[2020-07-30 02:37] LABS: Hematocrit 37.3 % (33.0-51.0); Hemoglobin 12.7 g/dL (11.5-16.0); Mean Corpuscular HGB 27.6 pg (26.0-34.0); Mean Corpuscular Volume 81 fL (80-100); Mean Platelet Volume 9.4 fL (9.1-12.4); Platelet Count 183 K/mm3 (150-400); RDW Coefficient Variation 14.4 % (11.7-14.2); White Blood Cell Count 5.31 K/mm3 (4.00-11.30)
[2020-07-30 02:56] LABS: Albumin, Blood 2.2 g/dL (3.4-5.0); Bilirubin, Total 0.5 mg/dL (0.1-1.0); Bun/Creatinine Ratio 16.1 (12.0-20.0); Calcium, Blood 8.3 mg/dL (8.5-10.1); Creatinine, Blood 2.48 mg/dL (0.40-1.00); Magnesium, Blood 1.3 mg/dL (1.6-2.4); Phosphorus, Blood 2.8 mg/dL (2.5-4.9); Potassium, Blood 3.9 mmol/L (3.5-5.5)
[2020-07-30 03:17] LABS: Albumin/Globulin Ratio 0.6 (0.8-1.8); Globulin, Blood 3.4 g/dL (2.2-4.0); Total Protein, Blood 5.6 g/dL (6.4-8.2)
[2020-07-30 03:23] LABS: BAND PERCENT MAN 44 % (0-8); BASOPHILS PERCENT MAN 0 % (0-2); EOSINOPHILS PERCENT MAN 2 % (0-6); LYMPHOCYTES ABSOLUTE MAN 0.63 K/mm3 (0.84-5.20); LYMPHOCYTES PERCENT MAN 12 % (21-46); MONOCYTES ABSOLUTE MAN 0.53 K/mm3 (0.16-1.47); MONOCYTES PERCENT MAN 10 % (4-13); NEUTROPHILS ABSOLUTE MAN 4.03 K/mm3 (1.96-9.15); SEG NEUTROPHILS PERCENT MAN 32 % (41-73); TOTAL CELLS COUNTED 100
--- NOTE | 2020-07-30 05:10 | NUR ---
Shift Summary Pt A/O X 4. Able to follow commands, No emesis since 1999, pt complains of nausea treated per emar. Right nephrostomy with 100 dark cloudy yellow urine. Ileostomy with 600 mls of brown liquid output. Pt asking for pain meds freqently, treated per emar. States being anxious and states Ativan helps or Xanax, treated with PRN Ativan with good effect. Pt remains in NSR, HR 110-132, BP STABLE MAP >65. Pt has increaed temp of 100.5 temporal, treated with cold wash cloth and fan. Pt uses call light freqently to make needs known. Will report to oncoming shift.
--- NOTE | 2020-07-30 06:21 | NUR ---
Dr. Maxwell called Provider called in regards to glucose of 68. Recieved orders to change LR to D5%1/2NS at 125 ml/hr for 2 L.
--- NOTE | 2020-07-30 06:51 | NUR ---
UPDATE Spoke to Dr. Maxwell and recieved order for Magnesium replacement.
--- NOTE | 2020-07-30 08:00 | NUR ---
[place] of Care: Care assumed at 0700hr. Patient sleeping and very difficulty to rouse at shift change. Would open eyes to verbal stimuli, but unable to stay awake. Patient then turned from lt to rt side, increased stimulation effective to wake patient. Remained drowsy but oriented x4. Refusing further cares (i.e. emptying of ileostomy bag, or linen change), at this time, stating that she just wants to sleep. This nurse instructed patient that she would be left alone to sleep for 1 more hour, but essential cares need to be done, and staff cannot leave her lying on soiled linens. VSS, spO2-98-99% on RA. Ileostomy to RLU patent and intact, draining brown liquid stool. Nephrostomy tube to rt upper flank patent and intact, draining clear yellow urine. PICC line to MARTINEZ patent and intact, infusing without difficulty. Medi-port to lt upper chest patent and intact, infusing without difficulty. Call light in reach, makes needs known. Will continue to monitor.
--- NOTE | 2020-07-30 13:20 | NUR ---
Update: VSS remain stable. Patient sleeping throughout morning. Patient accepted bed bath this morning but has since refused cares, stating "leave me alone, i dont want to turn". This RN also attempted to given vaginal suppository ordered by Dr. Donato this morning per vaginal discharge. Patient refusing suppository at this time, will leave active on EMAR and re-assess patient willingness to accept medication later this shift.
--- NOTE | 2020-07-30 16:44 | NUR ---
Transfer to PCU: New bed assignment received for PCU bed 16. Report called to Liu IRAHETA. Patient remains stable, VSS. Prn Zofran and phenergan effective to manage c/o nausea, no vomiting this shift. PRN fentanyl x2 doses effective to manage c/o ABD pain. Patient sleeping when not stimulated by staff. Belongings sent with patient to new room.
--- NOTE | 2020-07-30 18:09 | NUR ---
SHIFT SUMMARY NO ACUTE EVENTS THIS HALF OF SHIFT. PATIENT TRANSFERED TO UNIT FROM ICU VIA BED, ON BED REST. PATIENT ALERT AND ORIENTED, ANSWERS QUESTIONS APPROPRIATELY, VSS. PATIENT COMPLAINS OF ANXIETY AND REQUESTS ATIVAN AT THIS TIME, THIS RN DISCUSSED WITH PATIENT THE SIGNIFICANT LETHARGY NOTED DURING THIS SHIFT FROM DAY SHIFT ICU NURSE. PATIENT APPEARS ALERT AT THIS TIME, THIS RN DISCUSSED NOT TAKING ATIVAN/FENTANYL AT THE SAME TIME D/T RISK OF RESP. DEPRESSION AND DECREASED MENTAL STATUS, OFFERED THAT WE CAN TRIAL ATIVAN OR FENTANYL AND OBSERVE IF LETHARGY INCREASES. PATIENT CHOSE TO START WITH ATIVAN AT THIS TIME. PATIENT COMPLAINED OF NAUSEA, ZOFRAN GIVEN PER EMAR. PROTONIX GTT RUNNING, D5 1/2 NS RUNNING ORDERED.
[2020-07-31 00:30] LABS: Influenza A, PCR NEGATIVE (NEGATIVE); Influenza B, PCR NEGATIVE (NEGATIVE); Resp Syncytial Virus, PCR NEGATIVE (NEGATIVE); SARS-Cov-2 (COVID-19) PCR, MMC NEGATIVE (NEGATIVE)
[2020-07-31 04:51] LABS: Albumin, Blood 2.1 g/dL (3.4-5.0); Albumin/Globulin Ratio 0.7 (0.8-1.8); Bilirubin, Total 0.4 mg/dL (0.1-1.0); Bun/Creatinine Ratio 17.3 (12.0-20.0); Calcium, Blood 8.2 mg/dL (8.5-10.1); Creatinine, Blood 2.08 mg/dL (0.40-1.00); Globulin, Blood 3.2 g/dL (2.2-4.0); Magnesium, Blood 2.2 mg/dL (1.6-2.4); Phosphorus, Blood 3.3 mg/dL (2.5-4.9); Potassium, Blood 3.3 mmol/L (3.5-5.5); Thyroid Stimulating Hormone 2.79 uIU/mL (0.360-4.800); Total Protein, Blood 5.3 g/dL (6.4-8.2)
--- NOTE | 2020-07-31 06:43 | NUR ---
SHIFT SUMMARY PT WAS VERY LETHARGIC AND WAS ONLY RESPONDING TO PAINFUL STIMULI. PT BECAME MORE ALERT AND WAS ORIENTED AND ABLE TO ANSWER QUESTIONS APPROPRIATELY. PT STATED HAVING UNCONTROLLABLE 10of10 PAIN T/O HER BODY THAT PAIN MEDICATIONS HAD NO EFFECT ON. PT STATED HAVING NAUSEA T/O THE SHIFT THAT WAS UNCONTROLLED BY MEDICATIONS. VITALS WERE STABLE. BP 117-137 SYSTOLIC. HR 100'S. O2 SATS >98% ON ROOM AIR. PT DID NOT VOMIT AND ILLIOSTOMY SHOWED DARK GREEN LIQUID STOOL. PT WAS AWAKE MOST OF THE NIGHT.
[2020-07-31 09:59] LABS: BASOPHILS ABSOLUTE AUTO 0.01 K/mm3 (0.00-0.23); BASOPHILS PERCENT AUTO 0 % (0-2); EOSINOPHILS ABSOLUTE AUTO 0.09 K/mm3 (0.00-0.68); EOSINOPHILS PERCENT AUTO 1 % (0-6); Hematocrit 33.9 % (33.0-51.0); Hemoglobin 11.4 g/dL (11.5-16.0); IMMATURE GRAN PERCENT AUTO 1 % (0-1); LYMPHOCYTES ABSOLUTE AUTO 0.99 K/mm3 (0.84-5.20); LYMPHOCYTES PERCENT AUTO 11 % (21-46); MONOCYTES PERCENT AUTO 6 % (4-13); Mean Corpuscular HGB 27.3 pg (26.0-34.0); Mean Corpuscular HGB Conc 33.6 g/dL (31.5-36.5); Mean Corpuscular Volume 81 fL (80-100); Mean Platelet Volume 9.7 fL (9.1-12.4); NEUTROPHILS PERCENT AUTO 81 % (41-73); Platelet Count 156 K/mm3 (150-400); RDW Coefficient Variation 14.6 % (11.7-14.2); RDW Standard Deviation 42.5 fL (35.1-46.3); Red Blood Cell Count 4.18 M/mm3 (3.80-5.20); White Blood Cell Count 9.09 K/mm3 (4.00-11.30)
--- NOTE | 2020-07-31 13:03 | NUR ---
PATIENT CONTINUES TO REFUSE REPOSITIONING T/O THIS HALF OF SHIFT.
--- NOTE | 2020-07-31 16:40 | NUR ---
PT refussed to let BIRTH ATTENDANT or the nurse change her and do giuliana care ,PT refused to be reposition and she has refused any kind of hygiene care thourgh out the shift.
--- NOTE | 2020-07-31 17:26 | NUR ---
SHIFT SUMMARY NO ACUTE EVENTS THIS SHIFT, VSS. PATIENT APPEARS WITHDRAWN, MAKES STATEMENTS LIKE "NOBODY UNDERSTANDS WHAT I'VE BEEN THROUGH." THERAPEUTIC LISTENING PROVIDED BY THIS RN. PATIENT IS FOCUSED ON TIMING OF ATIVAN/PHENERGAN ADMIN, TIMES FOR NEXT AVAILABLE DOSE PLACED ON BOARD TO HELP RELIEVE ANXIETY. PATIENT REQUESTS TO HAVE THE LIGHTS OFF AND REQUESTS TO HAVE DOOR SHUT FREQUENTLY THROUGH SHIFT. PATIENT IS REFUSING DONATO CARE AND REPOSITIONING BY THIS RN AND BY OIL RIG DRILLER. PATIENT HAS ALLOWED EMPTYING OF ILEOSTOMY AND NEPHROSTOMY BY STAFF. THIS RN WAS ABLE TO REPOSITION PATIENT'S LEGS WITH A PILLOW AT ONE TIME THIS SHIFT, BUT NO OVERALL TURNS FOR REPOSITIONING WERE ALLOWED BY PATIENT. PATIENT REMAINS ON PROTONIX GTT, CLINIMIX AND FAT EMULSION STARTED THIS SHIFT. BEV AND BLE EDEMA NOTED, DR. ULLOA NOTIFIED AND LASIX ORDERED.
[2020-08-01 04:04] LABS: BASOPHILS ABSOLUTE AUTO 0.03 K/mm3 (0.00-0.23); BASOPHILS PERCENT AUTO 0 % (0-2); EOSINOPHILS ABSOLUTE AUTO 0.23 K/mm3 (0.00-0.68); EOSINOPHILS PERCENT AUTO 3 % (0-6); Hemoglobin 11.2 g/dL (11.5-16.0); IMMATURE GRAN ABSOLUTE AUTO 0.06 K/mm3 (0.00-0.10); IMMATURE GRAN PERCENT AUTO 1 % (0-1); LYMPHOCYTES ABSOLUTE AUTO 1.46 K/mm3 (0.84-5.20); LYMPHOCYTES PERCENT AUTO 16 % (21-46); MONOCYTES ABSOLUTE AUTO 0.44 K/mm3 (0.16-1.47); MONOCYTES PERCENT AUTO 5 % (4-13); Mean Corpuscular HGB 27.6 pg (26.0-34.0); Mean Corpuscular HGB Conc 33.9 g/dL (31.5-36.5); Mean Corpuscular Volume 81 fL (80-100); Mean Platelet Volume 9.6 fL (9.1-12.4); NEUTROPHILS ABSOLUTE AUTO 6.98 K/mm3 (1.96-9.15); NEUTROPHILS PERCENT AUTO 76 % (41-73); Platelet Count 162 K/mm3 (150-400); RDW Coefficient Variation 14.7 % (11.7-14.2); RDW Standard Deviation 43.1 fL (35.1-46.3); Red Blood Cell Count 4.06 M/mm3 (3.80-5.20)
[2020-08-01 05:21] LABS: Albumin, Blood 2.3 g/dL (3.4-5.0); Albumin/Globulin Ratio 0.7 (0.8-1.8); Bilirubin, Total 0.4 mg/dL (0.1-1.0); Bun/Creatinine Ratio 19.5 (12.0-20.0); Calcium, Blood 8.2 mg/dL (8.5-10.1); Creatinine, Blood 2.15 mg/dL (0.40-1.00); Globulin, Blood 3.5 g/dL (2.2-4.0); Magnesium, Blood 2.1 mg/dL (1.6-2.4); Phosphorus, Blood 3.3 mg/dL (2.5-4.9); Total Protein, Blood 5.8 g/dL (6.4-8.2)
--- NOTE | 2020-08-01 05:51 | NUR ---
SHIFT SUMMARY PT A&OX4. IRRITABLE OCCASIONALLY. SP02>92% ON RA. TELEMETRY READS SR, HR 80'S-90'S. PT HAS OSTOMY, EMPTIED GREEN LIQUID STOOL THIS SHIFT. PT HAS NEPHROSTOMY, BAG EMPTIED X3 THIS SHIFT. PT CONSTANTLY ASKED FOR ANY AVAILABLE MEDICATED DURING SHIFT, WAS NOT HAPPY WITH THE DOSES OF HER PAIN AND BENZO MEDICATIONS. PT C/O OF BACK AND STOMACH PAIN. MEDICATED PER EMAR. ABX, NS KVO, PROTONIX, CLINIMIX NUTRITION INFUSED THIS SHIFT. PT ALLOWED DONATO CARE X1. PT REFUSED REPOSITIONING AND WEARING SCDS. CALL LIGHTIN REACH. WILL GIVE REPORT TO ONCOMING NURSE.
--- NOTE | 2020-08-01 18:21 | NUR ---
SHIFT SUMMARY: NO ACUTE CHANGES T/OUT SHIFT. PT CONTINUES A&OX4, RESP EVEN AND UNLABORED ON RA, SINUS RHYTHM/TACH ON MONITOR. PT CONTINUES TO REFUSE CERTAIN AREAS OF CARE, SUCH REPOSITIONING AND PERICARE. PT ALLOWED REPOSITIONING ONE TIME BY THIS RN, LEGS FLOATED TO LEFT SIDE WITH PILLOW PLACED BETWEEN KNEES. PT DID ALLOW ILEOSTOMY AND NEPHROSTOMY BAGS TO BE EMPTIED NEEDED. ILEOSTOMY VOIDING BROWN LIQUID AND NEPHROSTOMY VOIDING CLEAR YELLOW URINE. PT REQUESTING TO EAT, DR ULLOA ADVANCES DIET TO FULL LIQUID, PT REFUSING FOOD TRAY TO BE ORDERED FROM [place], IS ATTEMPTING TO GET HER DAUGHTER TO DELIVER SOMETHING. HOME DOSES OF PAIN MEDICATION VERIFIED WITH [facility], DR ULLOA NOTIFIED AND GIVES VERBAL ORDER TO CHANGE OXYCODONE DOSE, PT NOTIFIED BUT C/O NOT GETTING DILAUDID. PT CONTINUES TO REQUEST PRN PAIN AND NAUSEA MEDICATIONS FREQUENTLY, MEDICATED PER EMAR. IV INFUSION OF PROTONIX, TPN AND FAT EMULSION CONTINUES. PT'S BUE RED AND EDEMATOUS, DIURESIS IN PLACE. WILL CONTINUE TO MONITOR AND TREAT ACCORDINGLY UNTIL CHANGE OF SHIFT.
[2020-08-02 03:34] LABS: BASOPHILS ABSOLUTE AUTO 0.02 K/mm3 (0.00-0.23); BASOPHILS PERCENT AUTO 0 % (0-2); EOSINOPHILS PERCENT AUTO 4 % (0-6); Hematocrit 29.6 % (33.0-51.0); IMMATURE GRAN PERCENT AUTO 1 % (0-1); LYMPHOCYTES ABSOLUTE AUTO 1.45 K/mm3 (0.84-5.20); LYMPHOCYTES PERCENT AUTO 19 % (21-46); MONOCYTES ABSOLUTE AUTO 0.57 K/mm3 (0.16-1.47); MONOCYTES PERCENT AUTO 8 % (4-13); Mean Corpuscular HGB 27.5 pg (26.0-34.0); Mean Corpuscular HGB Conc 33.8 g/dL (31.5-36.5); Mean Corpuscular Volume 82 fL (80-100); NEUTROPHILS ABSOLUTE AUTO 5.14 K/mm3 (1.96-9.15); NEUTROPHILS PERCENT AUTO 68 % (41-73); Platelet Count 155 K/mm3 (150-400); RDW Coefficient Variation 14.5 % (11.7-14.2); RDW Standard Deviation 42.9 fL (35.1-46.3); Red Blood Cell Count 3.63 M/mm3 (3.80-5.20); White Blood Cell Count 7.58 K/mm3 (4.00-11.30)
[2020-08-02 04:20] LABS: Albumin, Blood 2.3 g/dL (3.4-5.0); Anion Gap 8 mmol/L (6-16); Blood Urea Nitrogen 42 mg/dL (8-24); Bun/Creatinine Ratio 20.7 (12.0-20.0); CO2, Blood 18 mmol/L (21-32); Calcium, Blood 7.7 mg/dL (8.5-10.1); Chloride, Blood 109 mmol/L (98-108); Creatinine, Blood 2.03 mg/dL (0.40-1.00); Glomerular Filtration Rate 27 (60-); Glucose, Blood 137 mg/dL (70-99); Magnesium, Blood 1.8 mg/dL (1.6-2.4); Phosphorus, Blood 2.5 mg/dL (2.5-4.9); Potassium, Blood 3.3 mmol/L (3.5-5.5); Sodium, Blood 135 mmol/L (136-145)
--- NOTE | 2020-08-02 06:05 | NUR ---
SHIFT SUMMARY PT A&OX4. CONSTANTLY USING CALL LIGHT. SP02>92% ON RA. TELEMETRY READS SR, HR 80'S. BP SOFT THIS SHIFT. PT C/0 OF 10/10 STOMACH/BACK/LEG PAIN. HEATING PAD PLACED BEHIND BACK, MEDICATING PER EMAR, PT ASKING FOR MEDICATION OFTEN. PT C/O OF NAUSEA, MEDICATING PER EMAR. OSTOMY BAG AND NEPHROSTOMY BAG EMPTIED X2 THIS SHIFT. PT REFUSING REPOSITIONING AND SCD'S. ABX, PROTONIX, NUTRITION INFUSING PER EMAR. CALL LIGHTIN REACH. WILL GIVE REPORT TO ONCOMING NURSE.
--- NOTE | 2020-08-02 09:32 | NUR ---
TALKED TO ABOUT BLD PRESSURE. HOLD SPIROLACTONE AND GIVE 1/2 DOSE OF LASIX(10 MG). FOR COUGH CAN HAVE ROBITUSSIN 10 ML Q 6 HRS PRN.
--- NOTE | 2020-08-02 11:00 | NUR ---
PER PATIENT CAN HAVE REG DIET. LUNCH ORDER CHANGED.
--- NOTE | 2020-08-02 12:05 | NUR ---
ADVISED PATIENT W/TEMP 100.1. ORDERED TYLENOL 650 MG Q 6 PRN. PATIENT NOT DIABETIC AND BLOOD SUGARS HAVE BEEN GOOD. OK TO CANCEL BLD SUGARS.
--- NOTE | 2020-08-02 13:55 | NUR ---
TALKED TO ABOUT CLINIMEX. PATIENT ON REG DIET HAD 100% FOR LUNCH. OK TO D'C CLINIMEX
--- NOTE | 2020-08-02 15:49 | NUR ---
ALERT. ORIENTED. USES HEATING PAD T/O SHIFT. GOOD APPETITE. USES CALL LIGHT APPROPRIATELY. TELE ON AND SR IN 80'S PER TECH. PROTONIX IV RUNNING. HX CHRONIC NAUSEA AND MEDICATED T/O SHIFT. NO ACUTE CHANGES. WCTM
--- NOTE | 2020-08-02 16:40 | NUR ---
TALKED TO ABOUT DROPPING BLD PRESSURES. SEE EMAR. LR 500 MG IV BOLUS.
--- NOTE | 2020-08-02 18:40 | NUR ---
ISTRATE AWARE OF ABD XRAY AND STS "IF NO VOMITING WILL PROBABLY D'C TOMORROW." HAS NOT VOMITED TODAY.
--- NOTE | 2020-08-03 02:04 | NUR ---
54 year old Female with multiple medical problems continued on twele monitoring. PT has rt neph tube chronic & only 1 kidney per her report. Has loop ileostomy with mod amt of liquid output. PT had SBO & she was liberalized to gen diet & she ate several trays of mashed potatoes & turkey & gravy per PT report. She has chronic pain & on chronic home rx oxycodone 20 mg & oral dilaudid. She also takes 2 mg xanax at home & is on 0.5 mg IV ativan Q 4 hours PRN. PT not up OOB this shift, lives with Daughter & 1 grandchild in [place]. PT says she generally has rt neph tube changed in [place] monthly but due to covid 19 restrictions this has been delayed last change reportedly 4 months ago. On IV abx & IV flagyl Medicated for nausea several times & pain several times with mild helpful effect. Support offered for current illness.
[2020-08-03 05:15] LABS: BASOPHILS ABSOLUTE AUTO 0.03 K/mm3 (0.00-0.23); BASOPHILS PERCENT AUTO 1 % (0-2); EOSINOPHILS ABSOLUTE AUTO 0.24 K/mm3 (0.00-0.68); EOSINOPHILS PERCENT AUTO 4 % (0-6); Hematocrit 30.1 % (33.0-51.0); Hemoglobin 9.7 g/dL (11.5-16.0); IMMATURE GRAN ABSOLUTE AUTO 0.16 K/mm3 (0.00-0.10); IMMATURE GRAN PERCENT AUTO 2 % (0-1); LYMPHOCYTES PERCENT AUTO 24 % (21-46); MONOCYTES ABSOLUTE AUTO 0.59 K/mm3 (0.16-1.47); MONOCYTES PERCENT AUTO 9 % (4-13); Mean Corpuscular HGB 27.1 pg (26.0-34.0); Mean Corpuscular HGB Conc 32.2 g/dL (31.5-36.5); Mean Corpuscular Volume 84 fL (80-100); Mean Platelet Volume 9.3 fL (9.1-12.4); NEUTROPHILS ABSOLUTE AUTO 4.01 K/mm3 (1.96-9.15); NEUTROPHILS PERCENT AUTO 61 % (41-73); Platelet Count 147 K/mm3 (150-400); RDW Coefficient Variation 14.6 % (11.7-14.2); RDW Standard Deviation 44.7 fL (35.1-46.3); Red Blood Cell Count 3.58 M/mm3 (3.80-5.20); White Blood Cell Count 6.63 K/mm3 (4.00-11.30)
[2020-08-03 05:33] LABS: Albumin, Blood 2.2 g/dL (3.4-5.0); Albumin/Globulin Ratio 0.6 (0.8-1.8); Bilirubin, Direct 0.1 mg/dL (0.0-0.3); Bilirubin, Indirect 0.2 mg/dL (0.1-0.7); Bilirubin, Total 0.3 mg/dL (0.1-1.0); Bun/Creatinine Ratio 21.4 (12.0-20.0); Calcium, Blood 7.8 mg/dL (8.5-10.1); Creatinine, Blood 1.82 mg/dL (0.40-1.00); Globulin, Blood 3.4 g/dL (2.2-4.0); Magnesium, Blood 1.6 mg/dL (1.6-2.4); Phosphorus, Blood 2.2 mg/dL (2.5-4.9); Potassium, Blood 3.5 mmol/L (3.5-5.5); Total Protein, Blood 5.6 g/dL (6.4-8.2)
--- NOTE | 2020-08-03 06:49 | NUR ---
PT with multiple request, pleasant but will caLL SOON rn LEAVES ROOM. Lt arm has PICC line triple lumen which is difficult to flush & will not draw blood. Arm LT as edema & redness, tenderness. DR Collins has been notified. PT has hx of UE DVT & has mediport access & running continously & it does not draw blood either. HAs Q 8 hours IV flagyl RX, & now IV phosphorus RX. HAve not started IV phosphorus due to PICC line edema & redness. Medicated multiple times for nausea & pain & anxiety with mild helpful effect. Changed Dressing for rt neph tube due to leaking which resolved leaking. Tolerating diet without vomiting chronic nausea & pain.
--- NOTE | 2020-08-03 08:00 | NUR ---
PHYSICIAN NOTIFIED PHYSICIAN NOTIFIED OF PT'S SWOLLEN L ARM AROUND POWER GLIDE. ULTRASOUND ORDERED. PHYSICIAN AWARE OF PROTONIX BEING HELD TO RUN SODIUM PHOS AND ABX THROUGH MEDIPORT. PICC LINE NOT IN USE AT THIS TIME.
[2020-08-03] MEDS ORDERED: SPIR25 PO (13:15)
--- NOTE | 2020-08-03 13:35 | NUR ---
PT DISCHARGE PROVIDER DISCUSSED DISCHARGE WITH PT AT BEDSIDE. DISHCARGE INSTRUCTIONS PROVIDED TO PT AT BEDISDE WITH ESEQUIEL PHIPPS. MEDICATIONS TO CONTINUE CALLED INTO PT'S PREFERRED PHARMACY. DISCHARGE PAPERWORK SIGNED AT BEDSIDE. FAMILY INFORMED OF DISCHARGE AND PT TO RIDE HOME WITH DAUGHTER. MEDIPORT DE-ACCESSED WITH NS AND HEPARIN LOCK PER PROTOCOL. PICC LINE REMOVED BY ESEQUIEL PARSONS. WNL. PT WILL BE TAKEN BY WHEELCHAIR WITH BELONGINGS TO DAUGHTER'S VEHICLE BY JAVA MANAGER.
== END 2020-08-03 14:13 | disposition home or self-care (01) | DRG 871 ==
LOC: ER 08:23 → PCU 12:29 → ICUW 12:29 → ICUE 15:13 → PCU 07-30 16:29
PROVIDERS: Emergency Medicine; Family Medicine; Internal Medicine Nephrology; Nurse Practitioner Acute Care; ADMIT Internal Medicine
PROC: 02HV33Z Insertion of Infusion Device into Superior Vena Cava, Percutaneous Approach (ICD-10-PCS; principal; 2020-07-29)
DX: A41.9 Sepsis, unspecified organism (principal); R65.21 Severe sepsis with septic shock; N18.6 End stage renal disease; N17.9 Acute kidney failure, unspecified; K56.609 Unspecified intestinal obstruction, unspecified as to partial versus complete obstruction; F11.20 Opioid dependence, uncomplicated; G82.20 Paraplegia, unspecified; E87.2 Acidosis; E87.1 Hypo-osmolality and hyponatremia; I82.622 Acute embolism and thrombosis of deep veins of left upper extremity; N25.81 Secondary hyperparathyroidism of renal origin; Z51.5 Encounter for palliative care; Z79.01 Long term (current) use of anticoagulants; Z93.2 Ileostomy status; Z20.822 Contact with and (suspected) exposure to COVID-19; E86.0 Dehydration; F17.210 Nicotine dependence, cigarettes, uncomplicated; Z86.711 Personal history of pulmonary embolism; Z90.5 Acquired absence of kidney; G89.4 Chronic pain syndrome; F41.1 Generalized anxiety disorder; E87.6 Hypokalemia; E86.1 Hypovolemia
CPT/HCPCS: 0241U; 36415; 36569; 71045; 74018; 74176; 76882; 80053; 80069; 81001; 82248; 82550; 82553; 82803; 82947; 83605; 83690; 83735; 84100; 84443; 85014; 85018; 85025; 86850; 86900; 86901; 87040; 87077; 87086; 87186; 93005; 93010; 93970; 96361; 96365-59; 96366; 96367-59; 96368; 96375; 96376; 99291-25; A9270; C1751; C9113; J0692; J0696; J1170; J1642; J1940; J2060; J2405; J2550; J3010; J3475; J3480; J7030; J7042; J7050; J7060; J7120

== ENCOUNTER → 2020-12-08 | Outpatient (CLI) | payer OTHER ==
[~2020-12-08] MED LIST changes: +ALBU90OI INH; +Acidophilus1 EAC1 PO; +CALC.25 PO; +CYAN500 PO; +NEOMYC-POLYM-DEX5 ML RIGHTEYE; +ROXICODONE15 MG PO; +SPIR25 PO; +Vitamin D2000 UNIT PO
[2020-12-08 15:42] LABS: Albumin, Blood 3.4 g/dL (3.4-5.0); Anion Gap 11 mmol/L (6-16); Blood Urea Nitrogen 36 mg/dL (8-24); Bun/Creatinine Ratio 20.3 (12.0-20.0); CO2, Blood 15 mmol/L (21-32); Calcium, Blood 8.5 mg/dL (8.5-10.1); Chloride, Blood 115 mmol/L (98-108); Creatinine, Blood 1.77 mg/dL (0.40-1.00); Glomerular Filtration Rate 32 (60-); Glucose, Blood 79 mg/dL (70-99); Phosphorus, Blood 4.6 mg/dL (2.5-4.9); Sodium, Blood 141 mmol/L (136-145)
== END | disposition home or self-care (01) ==
LOC: LAB 12:30 → LAB SHORT 12:30
PROVIDERS: Internal Medicine Nephrology
DX: N18.30 Chronic kidney disease, stage 3 unspecified (principal); D63.1 Anemia in chronic kidney disease
CPT/HCPCS: 80069; 85018

== ENCOUNTER → 2021-03-18 | Outpatient (CLI) | payer OTHER ==
[2021-03-18 16:17] LABS: BASOPHILS ABSOLUTE AUTO 0.04 K/mm3 (0.00-0.23); BASOPHILS PERCENT AUTO 1 % (0-2); EOSINOPHILS ABSOLUTE AUTO 0.01 K/mm3 (0.00-0.68); EOSINOPHILS PERCENT AUTO 0 % (0-6); Hematocrit 36.8 % (33.0-51.0); Hemoglobin 12.4 g/dL (11.5-16.0); IMMATURE GRAN ABSOLUTE AUTO 0.11 K/mm3 (0.00-0.10); IMMATURE GRAN PERCENT AUTO 2 % (0-1); LYMPHOCYTES ABSOLUTE AUTO 1.04 K/mm3 (0.84-5.20); LYMPHOCYTES PERCENT AUTO 18 % (21-46); MONOCYTES ABSOLUTE AUTO 0.52 K/mm3 (0.16-1.47); MONOCYTES PERCENT AUTO 9 % (4-13); Mean Corpuscular HGB 28.6 pg (26.0-34.0); Mean Corpuscular HGB Conc 33.7 g/dL (31.5-36.5); Mean Corpuscular Volume 85 fL (80-100); Mean Platelet Volume 9.7 fL (9.1-12.4); NEUTROPHILS ABSOLUTE AUTO 4.15 K/mm3 (1.96-9.15); NEUTROPHILS PERCENT AUTO 71 % (41-73); Platelet Count 135 K/mm3 (150-400); RDW Coefficient Variation 15.7 % (11.7-14.2); RDW Standard Deviation 49.1 fL (35.1-46.3); Red Blood Cell Count 4.34 M/mm3 (3.80-5.20); White Blood Cell Count 5.87 K/mm3 (4.00-11.30)
[2021-03-18 16:29] LABS: Alanine Aminotransfer (ALT/SGP 18 U/L (12-78); Albumin, Blood 2.9 g/dL (3.4-5.0); Albumin/Globulin Ratio 0.6 (0.8-1.8); Alk Phos 159 U/L (50-136); Anion Gap 16 mmol/L (6-16); Aspartate Aminotrans (AST/SGOT 52 U/L (12-37); Bilirubin, Direct <0.1 mg/dL (0.0-0.3); Bilirubin, Indirect Unable to Calculate mg/dL (0.1-0.7); Bilirubin, Total 0.7 mg/dL (0.1-1.0); Blood Urea Nitrogen 51 mg/dL (8-24); CO2, Blood 10 mmol/L (21-32); Calcium, Blood 7.9 mg/dL (8.5-10.1); Chloride, Blood 99 mmol/L (98-108); Creatinine, Blood 2.69 mg/dL (0.40-1.00); Globulin, Blood 5.2 g/dL (2.2-4.0); Glomerular Filtration Rate 18 (60-); Glucose, Blood 83 mg/dL (70-99); Phosphorus, Blood 7.8 mg/dL (2.5-4.9); Sodium, Blood 125 mmol/L (136-145); Total Protein, Blood 8.1 g/dL (6.4-8.2)
== END | disposition home or self-care (01) ==
LOC: LAB SHORT 14:40 → LAB 14:40
PROVIDERS: Internal Medicine Nephrology
DX: N18.30 Chronic kidney disease, stage 3 unspecified (principal); D63.1 Anemia in chronic kidney disease; R76.9 Abnormal immunological finding in serum, unspecified; R94.5 Abnormal results of liver function studies; R94.6 Abnormal results of thyroid function studies
CPT/HCPCS: 80053; 82248; 84100; 85025